=== PATIENT | male | born 1990 | race Caucasian/White ===

== ENCOUNTER 2018-05-29 13:38 | Emergency (ER) | payer MEDICAID, SELFPAY ==
[2018-05-29 13:42] VITALS: BP 121/71; PULSE 79; RESP 16; TEMP 36.7; O2SAT 98
--- NOTE | 2018-05-29 13:56 | W.ED.GENAD ---
Discharge Plan Disposition Patient Disposition: HOME Condition: Fair Discharge Details Chief Complaint: DentalOral Clinical Impression: Dental infection Primary Care Provider: Maurice Squires ED Provider: Laura Benson Home Meds and New Rx's Prescriptions: New penicillin V potassium 500 mg tablet 500 mg PO QID Qty: 28 RF: 0 acetaminophen [Tylenol Extra Strength] 500 mg tablet 500 mg PO Q6H MDD 1-2 tabs, max 4,000mg daily PRN (Reason: fever or pain) Qty: 20 RF: 0 ibuprofen 600 mg tablet 600 mg PO QID PRN (Reason: pain) Qty: 20 RF: 0 Discharge Instructions Instructions: Dental Abscess (ED) Additional Instructions: Encourage hydration. Please take ibuprofen and Tylenol as prescribed for discomfort if needed. Please take penicillin as prescribed. Even if symptoms improve please take the entire course. Please contact dentist tomorrow to schedule appointment, attached is a local list of dentist. If you develop fever/chills, increased pain, swelling or other new/worsening symptoms please seek care urgently once again. Referrals: Maurice Squires [Primary Care Provider] - Discharge Data Discharge Date/Time-TO BE ENTERED AT DEPARTURE: 05/29/18 14:11 Medical Decision Making Patient 28-year-old male presenting today with chief complaint of left upper dental pain. He reports that he fractured the #15 tooth partially 4 weeks ago, unknown mechanism. Reports that he is 4 teeth. States he has been attempting to contact a dentist since that time has not had any luck with this. Reports that he had not been having any discomfort associated with a fractured tooth until today. States that he is now having pain in the left upper dentition, indicates that the #15 tooth on exam, with pain radiating up towards the left ear. No acute findings in the left ear. He is having discomfort with palpation of the buccal side of the gumline near the #15 tooth. No pain with palpation of the lingual side. No palpable area of fluctuance. The gumline it does appear slightly erythematous. Given his history and progression of symptoms I am concerned he is developing infection. Patient will be treated with penicillin VK. Encourage hydration. Tylenol and/or ibuprofen as needed for discomfort. Patient is requesting a prescription for Tylenol and ibuprofen. We will give the list of local dentists and advised that he call tomorrow to schedule follow-up as soon as possible. We discussed new/worsening symptoms when to seek care urgently again. All his questions and concerns were addressed and he is in agreement with this plan HPI General Mode of arrival: ambulatory. Date/Time Provider Initiated Documentation: 05/29/18 13:49. Limitations to Documentation: no limitations. History of Present Illness 28 year old M presents to the emergency department with the chief complaint of left upper dental pain, described as moderate, with intensity rated at 8. Quality is described as sharp, and is localized to the mouth (buccal side #15 tooth). Patient reports radiation to (radiates up toward the left ear). Patient started experiencing this hour(s) (4) and it has been constant. No relieving factors improve symptom(s), Cold therapy worsens symptoms and Eating worsens symptoms . Patient notes no other symptoms.; denies cough, fever/chills, headaches, nausea/vomiting and rash. Patient did receive the following treatments prior to arrival, none Related Data Home Medications Medication Instructions Recorded Confirmed acetaminophen [Tylenol Extra 500 mg PO Q6H PRN #20 tab MDD 1-2 05/29/18 Strength] tabs, max 4,000mg daily ibuprofen 600 mg PO QID PRN #20 tab 05/29/18 penicillin V potassium 500 mg PO QID #28 tab 05/29/18 Previous Rx's Medication Instructions Recorded acetaminophen [Tylenol Extra 500 mg PO Q6H PRN #20 tab MDD 1-2 05/29/18 Strength] tabs, max 4,000mg daily ibuprofen 600 mg PO QID PRN #20 tab 05/29/18 penicillin V potassium 500 mg PO QID #28 tab 05/29/18 Allergies Allergy/AdvReac Type Severity Reaction Status Date / Time No Known Allergies Allergy Unverified 02/09/18 12:47 General Stated Complaint: DentalOral CRISTINA: 5 Review of Systems Constitutional Reports as per HPI, Denies chills, Denies fever(s) and Denies headache(s) Eyes Denies irritation and Denies itchy eyes ENT Reports as per HPI, Denies vertigo, Denies dizziness, Denies ear discharge, Reports otalgia (endorsing left ear pain, feels that pain is radiating from left upper tooth discomfort), Reports facial pain (has discomfort on the right side of his face where the dental pain is localized), Denies headache(s) and Denies neck pain Cardiovascular Denies chest pain Respiratory Denies chest congestion and Denies cough Gastrointestinal Denies diarrhea, Denies nausea and Denies vomiting Musculoskeletal Denies neck pain Integumentary/Breasts Denies rash Neurologic Denies vertigo, Denies dizziness and Denies headache(s) Allergic/Immunologic Denies itchy eyes [facility] Social History Smoking/Tobacco Use Status: Current every day Exam Const General: cooperative, healthy appearing, comfortable, no acute distress and well developed Nutritional Appearance: average body habitus and well nourished Orientation: alert and awake HENMT Head: normal to inspection and normocephalic Ears: hearing grossly normal bilaterally, external ears normal and TM's normal bilaterally General nose exam: external nose normal and nares normal Face and sinus: normal facial exam, sinuses nontender and face symmetric Mouth: oral mucosae normal, lip normal, tongue normal, oropharynx normal, moist mucous membranes and no trismus Teeth and gingiva: abnormal dentition (patient has poor dentition with multiple caries. He has pain with palpation over theleft upper buccal gum line with associated erythema. No area of fluctuance, no lingual sided discomfort) Throat: posterior oropharynx normal, tonsils normal and uvula midline Eyes General: appearance normal, both eyes and all related structures Neck Neck: normal visual inspection, full ROM, no lymphadenopathy and no meningeal signs Resp Effort & Inspection: normal respiratory effort, able to speak in complete sentences and no cough Auscultation: clear to auscultation bilaterally Cardio Rate: regular rate Rhythm: regular rhythm Heart Sounds: S1 normal and S2 normal Skin General skin exam: no rashes or lesions noted Neuro General: alert, awake and oriented x3 Cognition: normal cognition Speech: speech normal Gait: normal gait Psych Appearance: grossly normal and well kempt Mental Status: mental status grossly normal Course Vital Signs Temperature 36.7 C 05/29/18 13:42 Pulse 79 05/29/18 13:42 Respiratory Rate 16 05/29/18 13:42 Blood Pressure 121/71 05/29/18 13:42 Pulse Oximetry 98 05/29/18 13:42 Temperature 36.7 C 05/29/18 13:42 Temperature Source Temporal Artery Scan 05/29/18 13:42 Pulse 79 05/29/18 13:42 Respiratory Rate 16 05/29/18 13:42 Respiratory Effort 05/29/18 13:45 Blood Pressure 121/71 05/29/18 13:42 Blood Pressure Position Sitting 05/29/18 13:42 Pulse Oximetry 98 05/29/18 13:42 Oxygen Delivery Method Room Air 05/29/18 13:42 Oxygen Flow Rate 0 05/29/18 13:42 Pain Level 8 05/29/18 13:42
[2018-05-29] MEDS: Penicillin V POTASSIUM 500 MG TAB PO (14:10)
[2018-05-29] MEDS: Acetaminophen 500 MG TAB 1000 MG PO (14:10)
[2018-05-29] MEDS: Ibuprofen 600 MG TAB PO (14:10)
== END 2018-05-29 14:11 | disposition home or self-care (01) ==
PROVIDERS: Emergency Provider Physician Assistant; PCP Family Medicine
DX: K04.7 Periapical abscess without sinus (principal)
CPT/HCPCS: 99283

== ENCOUNTER 2019-01-11 17:08 | Emergency (ER) | payer MEDICAID, SELFPAY ==
[2019-01-11 17:11] VITALS: BP 110/70; PULSE 74; RESP 18; TEMP 36.7; O2SAT 96
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
[2019-01-11 18:31] VITALS: BP 110/70; PULSE 74; RESP 18; TEMP 36.7; O2SAT 96
== END 2019-01-11 18:31 | disposition home or self-care (01) ==
PROVIDERS: Emergency Provider Emergency Medicine; PCP Family Medicine
DX: S92.404A Nondisplaced unspecified fracture of right great toe, initial encounter for closed fracture (principal); W22.8XXA Striking against or struck by other objects, initial encounter
CPT/HCPCS: 28490; 73630

== ENCOUNTER 2019-04-18 19:56 | Emergency (ER) | payer MEDICAID, SELFPAY ==
[2019-04-18 19:59] VITALS: BP 119/65; PULSE 97; RESP 17; TEMP 36.6; O2SAT 98
--- NOTE | 2019-04-18 20:06 | W.ED.GENAD ---
Discharge Plan Disposition Patient Disposition: HOME Condition: Good Discharge Details Chief Complaint: Sorethroat Clinical Impression: Viral URI with cough Primary Care Provider: Maurice Squires ED Provider: Torey Martinez Discharge Instructions Instructions: Upper Respiratory Infection (ED) Additional Instructions: Strep culture is pending. Symptoms are most likely viral URI. It is important to stay hydrated. Alternate Motrin with Tylenol for fever and pain. Salt water gargles and Cepacol lozenges will help with a sore throat. Return to the emergency department if you develop sudden worsening of symptoms, increasing shortness of breath, chest pain, confusion, other concerns. Follow-up with primary care in 7 to 10 days if not getting better. Referrals: Maurice Squires [Primary Care Provider] - Medical Decision Making Patient with URI symptoms that are likely viral in nature. Rapid strep is done and is negative. Will send for culture. Lungs are clear to auscultation with no wheezing or focal findings. Cough is dry in nature and he is a smoker. We will try DuoNeb treatment. If this helps we will plan discharge with albuterol inhaler. Otherwise symptomatic care with Motrin or Tylenol as needed, rest, fluids. DuoNeb treatment did not help. Still has a dry cough and does not really feel any better in terms of breathing. He otherwise looks well. And vital signs are normal. Pulse oximetry normal. Lungs clear. Likely viral URI. Discussed the expectations of a viral URI. Will return to the emergency department if he has altered mental status, chest pain, increasing shortness of breath, sudden worsening in symptoms. Otherwise follow-up with primary care in 7 to 10 days if not better. HPI General Mode of arrival: ambulatory. Date/Time Provider Initiated Documentation: 04/18/19 20:06. Limitations to Documentation: no limitations. Information obtained by: patient and RN notes reviewed. HPI Narrative: Patient presents to the ED with complaint of sore throat, cough, nasal congestion for the last 2 days. He has had subjective fevers but no documented temperature with thermometer. He has some body aches, mild headache, bilateral ear pain. Throat bothers him the most. Cough is dry in nature. Feels a little short of breath. No chest pain or back pain. He is a smoker. He is able to eat and drink although it causes discomfort. Drinking is definitely easier. Related Data Allergies Allergy/AdvReac Type Severity Reaction Status Date / Time No Known Allergies Allergy Unverified 02/09/18 12:47 General Stated Complaint: Sorethroat CRISTINA: 4 Review of Systems Review of Systems As documented in HPI otherwise negative as below. Const: subjective fever; no chills, weakness Resp: positive cough, mild SOB; no pleuritic pain CV: no CP, diaphoresis, edema, syncope GI: no abdominal pain, nausea, vomiting, diarrhea Neuro: mild headache; no numbness, focal weakness, confusion [facility] Medical History Erectile dysfunction (Acute) Tobacco abuse disorder (Acute) Surgical History History of placement of ear tubes (Acute) Social History Smoking/Tobacco Use Status: Current every day Alcohol Intake: never Drug use: Daily Substance use type: does not use Do you feel safe in your relationship?: Yes Exam Narrative Exam Narrative: Vitals: Afebrile here. Vitals normal with normal pulse ox. Const: WDWN male in NAD. HEENT: NC/AT. Normal facial exam. TMs normal bilaterally. Posterior OP erythematous; no exudate or edema. Eyes: Normal conjunctiva and sclera. Neck: Supple. Trachea midline. Lungs: Normal respiratory effort. Lungs are clear. No wheeze, rhonchi, rales. Cor: RRR without murmur/gallop. Neuro: A+O x 3. CN grossly in tact. Good strength and no focal deficit. Ext: No C/C/E. Skin: Warm and dry without rash. Course Vital Signs Temperature 97.9 F 04/18/19 19:59 Pulse 97 H 04/18/19 19:59 Respiratory Rate 17 04/18/19 19:59 Blood Pressure 119/65 04/18/19 19:59 Pulse Oximetry 98 04/18/19 19:59 Temperature 97.9 F 04/18/19 19:59 Temperature Source Skin 04/18/19 19:59 Pulse 97 H 04/18/19 19:59 Respiratory Rate 17 04/18/19 19:59 Respiratory Effort Non-Labored 08/27/19 20:01 Blood Pressure 119/65 08/27/19 19:59 Pulse Oximetry 98 04/18/19 19:59 Oxygen Delivery Method Room Air 04/18/19 19:59 Oxygen Flow Rate 0 04/18/19 19:59
[2019-04-18] MEDS: Albuterol/Ipratropium 3 ML UPD VIAL UPD (20:21)
--- NOTE | 2019-04-20 08:14 | W.ED.FU ---
pt's strep culture positive, attempted to call back but his voicemail restricts any calls from the hospital.
== END 2019-04-18 20:45 | disposition home or self-care (01) ==
PROVIDERS: Emergency Provider Emergency Medicine; PCP Family Medicine
DX: J02.0 Streptococcal pharyngitis (principal); R05 Cough; H92.03 Otalgia, bilateral; F17.210 Nicotine dependence, cigarettes, uncomplicated
CPT/HCPCS: 87880; 94640; 99283; 87081; J7620

== ENCOUNTER 2019-05-10 11:36 | Emergency (ER) | payer MEDICAID, SELFPAY ==
[2019-05-10 11:46] VITALS: BP 115/57; PULSE 100; RESP 20; TEMP 36.8; O2SAT 97
--- NOTE | 2019-05-10 12:32 | ED.GENADUL_ITS ---
Discharge Plan Disposition Patient Disposition: HOME Condition: Good Discharge Details Chief Complaint: Sorethroat Clinical Impression: Strep throat, Bronchitis Primary Care Provider: Maurice Squires ED Provider: Jose Mackay Home Meds and New Rx's Prescriptions: New amoxicillin-pot clavulanate [Augmentin] 875-125 mg tablet 1 tab PO BID 10 Days Qty: 20 RF: 0 Discharge Instructions Instructions: Strep Throat (ED), Acute Bronchitis (ED) Additional Instructions: You have strep throat. I am also concerned that you have mild bronchitis and potential mild pneumonia. Please take antibiotics as directed. If you notice any worsening of your symptoms, or any new symptoms such as vomiting, diarrhea, fever, chills, shortness of breath, chest pain, numbness, weakness, or fainting , please return immediately to the emergency department for reevaluation. Please follow up with your primary care provider as soon as possible for reassessment and reevaluation. As always, it was a pleasure participating in your medical care today. Referrals: Maurice Squires [Primary Care Provider] - Medical Decision Making This is a 29-year-old male who presents with 2 to 3 days of mild sore throat, fevers, chills, mild cough that is nonproductive. Physical exam demonstrates notable tonsillar exudate mild enlargement. No significant crackles or rhonchi in the lungs. Strep test is positive. With the patient's fever, chills, cough, and concern for associated mild early pneumonia in conjunction with strep throat. Will broaden antibiotic coverage to Augmentin, to cover both mild community-acquired pneumonia per [facility] resistance patterns, as well as a strep throat. We will give Toradol and Decadron to help with his symptoms. I have extensively reviewed the treatment plan and discharge instructions with the patient and their family. I have addressed all patient concerns at this time. The patient and family was made aware of what symptoms to monitor for that would warrant a return to the emergency department. Discussed the plan with the patient and family, they demonstrate verbal understanding and agreement with our assessment and plan at this time. HPI General Date/Time Provider Initiated Documentation: 05/10/19 12:13 . HPI Narrative: This is a 29-year-old male with no significant past medical history except for occasional tobacco abuse who presents today for evaluation of sore throat. Symptoms have been present for the last 2 to 3 days. He has had no associated mild fever at home, he is afebrile here. Does admit to mild cough that is nonproductive. He denies any hemoptysis. He denies any headache or neck pain or neck stiffness. He denies any difficulty swallowing. He denies any severe uncharacteristic fatigue. He denies any other sick contacts with similar symptoms. Symptoms are made slightly better with NSAIDs. He denies any other complaints at this time. No other modifying factors. Related Data Home Medications Medication Instructions Recorded Confirmed amoxicillin-pot clavulanate 1 tab PO BID 10 Days #20 tab 05/10/19 [Augmentin] Previous Rx's Medication Instructions Recorded amoxicillin-pot clavulanate 1 tab PO BID 10 Days #20 tab 05/10/19 [Augmentin] Allergies Allergy/AdvReac Type Severity Reaction Status Date / Time No Known Allergies Allergy Unverified 05/10/19 11:47 General Stated Complaint: Sorethroat CRISTINA: 4 Review of Systems Review of Systems ROS Unobtainable: All systems reviewed & are unremarkable except as noted in HPI and below PFSH Social History Smoking/Tobacco Use Status: Current every day Alcohol Intake: never Drug use: Daily Substance use type: does not use Do you feel safe at home: Yes Do you feel safe in your relationship?: Yes Exam Narrative Exam Narrative: 1.Const: Well-nourished, Well-developed, appearing stated age 2.Eyes: PERRL, no conjunctival injection, and symmetrical lids. 3.ENT: Atraumatic external nose and ears. Moist MM. Neck: Symmetric, trachea midline, No thyromegaly. Mild erythema in the posterior oropharynx, mild to moderate tonsillar enlargement, moderate tonsillar exudate. No evidence of airway compromise or peritonsillar abscess. Patient demonstrates good movement of cervical neck. There is no nuchal rigidity, no nuchal tenderness. Patient is able to flex the neck without any difficulty or significant pain. Negative Kernig's and Brudzinski sign. 4.CVS: +S1/S2, No murmurs or gallops. Peripheral pulses 2+ and equal in all extremities. Brisk capillary refill in all extremities. 5.RESP: Unlabored respiratory effort. Clear to auscultation bilaterally. No wheezes rales or rhonchi 6.GI: Soft, Nontender/Nondistended, No hepatosplenomegaly. No guarding or rebound. 7.MSK: Normocephalic/Atraumatic, Extremities w/o deformity or ttp No cyanosis or clubbing, Normal movement of all extremities 8.Skin: Warm, Dry. No rashes or lesions. 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 Sensation grossly intact, no focal neurologic deficits. 10.Psych: (AAO) x3. Appropriate mood and affect Course Vital Signs Vital signs: Vital Signs Temperature 36.8 C 05/10/19 11:46 Pulse 100 H 05/10/19 11:46 Respiratory Rate 20 05/10/19 11:46 Blood Pressure 115/57 L 05/10/19 11:46 Pulse Oximetry 97 05/10/19 11:46 Temperature 36.8 C 05/10/19 11:46 Temperature Source Temporal Artery Scan 05/10/19 11:46 Pulse 100 H 05/10/19 11:46 Respiratory Rate 20 05/10/19 11:46 Respiratory Effort Non-Labored 05/10/19 11:48 Blood Pressure 115/57 L 05/10/19 11:46 Blood Pressure Position Sitting 05/10/19 11:46 Pulse Oximetry 97 05/10/19 11:46 Oxygen Delivery Method Room Air 05/10/19 11:46 Oxygen Flow Rate 0 05/10/19 11:46 Pain Level 8 05/10/19 11:46 Lab/Test Results Lab/Test Results: POC Strep Test-[facility](Rapid) Start: 05/10/19 11:55 Freq: Status: Active Protocol: Document 05/10/19 11:55 (Rec: 05/10/19 11:55 [id number]) Strep test-[facility](Rapid)-POC POC-Strep test-[facility] (Rapid) Positive POC-Strep test-[facility] (Rapid) Positive
[2019-05-10] MEDS: Dexamethasone 10 MG/ML VIAL IM (12:40)
[2019-05-10] MEDS: Ketorolac 30 MG/ML VIAL IM (12:40)
== END 2019-05-10 13:14 | disposition home or self-care (01) ==
PROVIDERS: Emergency Provider Student in an Organized Health Care Education/Training Program; PCP Family Medicine
DX: J02.0 Streptococcal pharyngitis (principal); J20.9 Acute bronchitis, unspecified; F17.210 Nicotine dependence, cigarettes, uncomplicated
CPT/HCPCS: 87880; 96372; 99284; J1100; J1885

== ENCOUNTER 2019-08-02 15:50 | Emergency (ER) | payer MEDICAID, SELFPAY ==
[2019-08-02 16:01] VITALS: BP 122/72; PULSE 97; RESP 14; TEMP 36.8; O2SAT 97
--- NOTE | 2019-08-02 16:28 | ED.GENADUL_ITS ---
Discharge Plan Disposition Patient Disposition: HOME Condition: Good Discharge Details Chief Complaint: Nausea/Vomit/Diar Clinical Impression: Gastroenteritis Primary Care Provider: Joan Webster ED Provider: Marii Tarango Home Meds and New Rx's Prescriptions: New ondansetron HCl [Zofran] 4 mg tablet 4 mg PO Q8H PRN (Reason: nausea and vomiting) Qty: 7 RF: 0 Discharge Instructions Instructions: Gastroenteritis (ED) Additional Instructions: Drink plenty of fluids. Observe for any signs of dehydration. Nausea medication as prescribed if needed. Use Tylenol for fever control if needed [id number]. You declined labs or IV fluids at this time but understand to return for any worsening or alarming symptoms if needed. Recheck with PCP if not improved in 1 to 2 days Return for abdominal pain, signs of dehydration, worsening symptoms or alarming symptoms sooner if needed Stand Alone Forms: Work Release Medical Decision Making There is a 29-year-old patient who presents for nausea vomiting and diarrhea which began today. Patient reports last episode of vomiting was approximately 3 hours ago and he has been tolerating fluids since that time. Patient was unable to go to work today due to several and frequent episodes of vomiting and diarrhea. Patient denies abdominal pain. He did report to cramping prior to moving bowels however pain has entirely resolved in his abdomen. Patient denies headache or dizziness. Patient does report mild feverish feeling today with no associated chills. Patient does report he is urinating normal amounts. Patient has been drinking water for the last 3 hours without vomiting. Patient reports watery diarrhea with no associated blood. Patient denies upper respiratory symptoms however does have a baseline cough which he attributes to smoking. Patient denies drug or alcohol use. At this time patient declines labs or IV. Would prefer oral hydration. Patient reports he primarily came to the emergency room for a note to excuse him from work today. Patient will consent to nausea medication to thea any persistent vomiting. Will give patient a tablet of nausea medication at this time and 1 for home. Will provide a prescription for nausea medication although patient reports he is very unlikely to fill this medication unless necessary. Counseled regarding hyd rating by mouth as well as signs and symptoms of dehydration. Patient is nontoxic-appearing at this time. Patient's abdominal exam at this time is extremely benign. He has no associated pain on palpation. He has no peritoneal signs or symptoms. No rebound or guarding. Patient's preference at this time is to be provided a work note and discharged home with conservative treatments and return for any worsening or concerns if needed. The patient was stable and requested discharge. Prior to discharge, my usual and customary return precautions were reviewed with the patient - this included follow-up instructions and reasons to return to the Emergency Department if conditions worsens, does not improve as expected, or other new concerns arise. HPI General Date/Time Provider Initiated Documentation: 08/02/19 16:13 . HPI Narrative: Is a 29-year-old patient who presents for nausea vomiting and diarrhea which began this morning. Patient reports several episodes of nausea vomiting and diarrhea. Patient denies abdominal pain. Patient denies headache or dizziness. Patient does report a mild fever at home. Patient reports no blood in the vomitus or bowel movements. Patient does report mild discomfort when having bowel movements due to soreness of the rectum but again no sharp pain. Patient reports he missed work today due to vomiting and diarrhea and is requesting a work note at this time. Patient reports last episode of vomiting was approximately 3 hours ago. Patient has been tolerating fluids since that time. Patient has been urinating normally. Patient reports a mild baseline cough without change which she attributes to smoking. Denies any other upper respiratory symptoms or worsening cough. Denies back pain. No other concerns or complaints at this time. Related Data Home Medications Medication Instructions Recorded Confirmed ondansetron HCl [Zofran] 4 mg PO Q8H PRN #7 tab 08/02/19 Previous Rx's Medication Instructions Recorded ondansetron HCl [Zofran] 4 mg PO Q8H PRN #7 tab 08/02/19 Allergies Allergy/AdvReac Type Severity Reaction Status Date / Time No Known Allergies Allergy Unverified 08/02/19 16:04 General Stated Complaint: Nausea/Vomit/Diar CRISTINA: 3 Review of Systems All systems reviewed & are unremarkable except as noted in HPI and below Constitutional Constitutional: Denies chills, Denies fatigue, Reports fever(s), Denies headache(s) and Denies malaise ENT Ears, Nose, Mouth, and Throat: Denies headache(s) and Denies sore throat Respiratory Respiratory: Reports cough, Denies excessive phlegm production, Denies pain on inspiration, Denies pain with cough and Denies wheezing Gastrointestinal Gastrointestinal: Denies abdominal pain, Denies constipation, Reports cramping, Reports diarrhea, Reports nausea and Reports vomiting Genitourinary Genitourinary: Denies dysuria Neurologic Neurologic: Denies headache(s) Endocrine Endocrine: Denies fatigue Allergic/Immunologic Allergic/Immunologic: Denies wheezing [facility] Medical History Eczema (Acute) Erectile dysfunction (Acute) Tobacco abuse disorder (Acute) Surgical History History of placement of ear tubes (Acute) Social History Smoking/Tobacco Use Status: Current every day Tobacco Type: cigarettes Quit status: not considering quitting Second Hand Exposure: Yes (both parents smoked) Alcohol Intake: never Drug use: Daily Substance use type: marijuana Adopted: No Household members: spouse, family and children Housing: house Number of Children: 2 Education Level: high school Do you need help understanding health information?: Rarely 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 Well hydrated. Alert and alert. HENMT: Head nomocephalic, normal to inspection. Atraumatic. Hearing grossly normal. External ear canal no erythema or swelling. TM normal bilaterally. Nose normal to inspection. No rhinnorhea. Normal facial exam. Oral mucosa mildly dry mucous membranes. Dentition normal. Normal posterior oropharynx. Uvula midline. EYES: General normal appearance. Alignment normal. Eyelids normal. Conjunctiva normal. Sclera normal. PERRL. NECK: Normal visual inspection. FROM. No lymphadenopathy. Trachea midline. No Midline tenderness. CHEST: Normal insepection of the chest. RESP: Normal respiratory effort. Speaking full sentences. No cough. No wheezing. No retractions. Clear to auscaltation. Breath sound equal and present bilaterally. CARDIO: No JVD. Normal PMI. Regular Rate. Regular Rhythm. Normal peripheral pulses. GI: Normal inspection of abdomen. No distension. Soft. Nontender. Bowel sounds present in all 4 quadrants. No rebound. No gaurding. MUSCULOSKELETAL: Normal Gait. FROM of all extremities. Distal neurovascularly i ntact. Sensation intact distally. SKIN: Normal. Dry. No rashes. NEURO: Alert and awake. Speech clear. PSYCH: Normal affect. Cooperative. Course Vital Signs Vital signs: Vital Signs Temperature 36.8 C 08/02/19 16:01 Pulse 97 H 08/02/19 16:01 Respiratory Rate 14 08/02/19 16:01 Blood Pressure 122/72 08/02/19 16:01 Pulse Oximetry 97 08/02/19 16:01 Temperature 36.8 C 08/02/19 16:01 Temperature Source Temporal Artery Scan 08/02/19 16:01 Pulse 97 H 08/02/19 16:01 Respiratory Rate 14 08/02/19 16:01 Respiratory Effort Non-Labored 08/02/19 16:03 Blood Pressure 122/72 08/02/19 16:01 Blood Pressure Position Sitting 08/02/19 16:01 Pulse Oximetry 97 08/02/19 16:01 Oxygen Delivery Method Room Air 08/02/19 16:01 Oxygen Flow Rate 0 08/02/19 16:01 Pain Level 0 08/02/19 16:01
== END 2019-08-02 16:40 | disposition home or self-care (01) ==
PROVIDERS: Emergency Provider Physician Assistant; PCP Nurse Practitioner
DX: K52.9 Noninfective gastroenteritis and colitis, unspecified (principal); R50.9 Fever, unspecified
CPT/HCPCS: 99283

== ENCOUNTER 2019-09-20 09:01 | Outpatient (CLI) | payer MEDICAID, SELFPAY ==
[2019-09-20 09:25] LABS: HCT 40.3 % (40.0-50.0); HGB 13.6 g/dL (13.5-17.5); Mean Corp. HGB Concentration 33.7 g/dL (32.0-36.0); Mean Corpuscular Hemoglobin 31.3 pg (27.0-33.0); Mean Corpuscular Volume 92.9 fL (80-95); Mean Platelet Volume 9.6 fL (8.0-11.0); Platelet Count 210 x1000/uL (130-400); RBC 4.34 m/cumm (4.50-6.00); RBC Distribution Width 12.7 % (11.8-14.1); White Blood Cell Count 5.83 k/cumm (4.4-10.8)
[2019-09-20 10:23] LABS: ALT 22 U/L (16-63); AST 20 U/L (15-37); Albumin 3.7 g/dL (3.4-5.0); Alkaline Phosphatase 81 U/L (46-116); BUN 15 mg/dL (7-18); Bilirubin, Total 0.2 mg/dL (0.2-1.0); Calcium 8.5 mg/dL (8.5-10.1); Chloride 106 mmol/L (98-107); Glucose 76 mg/dL (74-106); Sodium 144 mmol/L (136-145); TSH (W/Ref FT4) 1.14 uIU/mL (0.36-3.74); Total Protein 6.9 g/dL (6.4-8.2)
[2019-09-21 12:11] LABS: PSA, Screening 0.8 ng/mL (0.0-2.5)
[2019-09-23 08:34] LABS: Testosterone, Total 299 ng/dL (240-950)
== END 2019-09-20 09:21 ==
PROVIDERS: PCP Nurse Practitioner; Visit Provider Nurse Practitioner Gerontology
DX: R53.83 Other fatigue (principal); N52.9 Male erectile dysfunction, unspecified; R33.9 Retention of urine, unspecified; Z12.5 Encounter for screening for malignant neoplasm of prostate
CPT/HCPCS: 36415; 80053; 84153; 84403; 85027; 84443

== ENCOUNTER 2019-10-31 15:36 | Outpatient (CLI) | payer MEDICAID, SELFPAY ==
[2019-10-31 17:05] LABS: ESR 18 mm/hr (0-15)
[2019-10-31 18:09] LABS: C-Reactive Protein 0.39 mg/dL (0.0-0.3)
[2019-10-31 21:39] LABS: Rheumatoid Factor <8.6 IU/mL (<12.0)
[2019-11-01 11:41] LABS: Lyme Ab w Rflx to Lyme Confirm Negative (Negative)
[2019-11-01 16:49] LABS: ANA Interpretation Positive (Negative); ANA Titer Pattern 1:80 Speckled
== END 2019-10-31 15:56 ==
PROVIDERS: PCP Nurse Practitioner; Visit Provider Nurse Practitioner
DX: M25.50 Pain in unspecified joint (principal); M25.561 Pain in right knee; M25.562 Pain in left knee; M79.643 Pain in unspecified hand; R53.83 Other fatigue
CPT/HCPCS: 36415; 85652; 86038; 86140; 86431; 86618

== ENCOUNTER 2020-06-18 07:50 | Outpatient (CLI) | payer MEDICAID, SELFPAY ==
[2020-06-21 04:46] LABS: Patient Race White; SARS-CoV-2 RNA Undetected (Undetected); SARS-CoV-2 Specimen Source Nasal
== END 2020-06-18 08:10 ==
PROVIDERS: PCP Nurse Practitioner; Visit Provider Family Medicine
DX: Z11.59 Encounter for screening for other viral diseases (principal)
CPT/HCPCS: U0003

== ENCOUNTER 2022-03-11 01:25 | Outpatient (CLI) | payer MEDICAID, SELFPAY ==
[2022-03-11 09:08] LABS: HGB 15.2 g/dL (13.5-17.5); MCH 31.4 pg (27.0-33.0); MCHC 34.5 % (32.0-36.0); MCV 91 fL (80-95); MPV 9.8 fL (8.0-11.0); Platelet Count 190 10^3/uL (130-400); RBC 4.84 10^6/uL (4.36-5.78); RDW 12.7 % (11.8-14.1); RDW-SD 42.2 fL; WBC 15.34 10^3/uL (4.4-10.8)
[2022-03-11 10:14] LABS: ALT 20 U/L (16-63); AST 13 U/L (15-37); Albumin 4.1 g/dL (3.4-5.0); Alkaline Phosphatase 105 U/L (46-116); BUN 12 mg/dL (7-18); Bilirubin, Total 0.4 mg/dL (0.2-1.0); Calcium 8.9 mg/dL (8.5-10.1); Calculated LDL 112 mg/dL (<100); Chloride 105 mmol/L (98-107); Cholesterol 190 mg/dL (<200); Glucose 98 mg/dL (74-106); HDL Cholesterol 31 mg/dL (40-60); Potassium 3.9 mmol/L (3.5-5.1); Sodium 140 mmol/L (136-145); Total Protein 7.8 g/dL (6.4-8.2); Triglyceride 239 mg/dL (<150)
[2022-03-12 09:43] LABS: Hepatitis C Ab w Rflx HCV PCR Negative (Negative)
[2022-03-12 10:00] LABS: HIV-1/2 Ag & Ab Screen Negative (Negative)
== END 2022-03-11 01:26 | disposition home or self-care (01) ==
LOC: LBO 01:25
PROVIDERS: PCP Nurse Practitioner; Visit Provider Nurse Practitioner
DX: D72.829 Elevated white blood cell count, unspecified (principal); R20.0 Anesthesia of skin; Z72.0 Tobacco use; Z13.220 Encounter for screening for lipoid disorders; Z11.59 Encounter for screening for other viral diseases; Z11.4 Encounter for screening for human immunodeficiency virus [HIV]
CPT/HCPCS: 36415; 80053; 80061; 85027; 86803; 87389

== ENCOUNTER 2022-03-20 01:26 | Outpatient (CLI) | payer MEDICAID, SELFPAY | END 2022-03-20 01:27 | disposition home or self-care (01) | LOC: LBO 01:27 | PROVIDERS: PCP Nurse Practitioner; Visit Provider Nurse Practitioner ==

== ENCOUNTER → 2022-04-03 00:28 | Outpatient (CLI) | payer MEDICAID, SELFPAY ==
--- NOTE | 2022-04-03 07:00 | DI.MRI_ITS ---
Exam(s) MR LUMBAR SPINE WO EXAM: MR LUMBAR SPINE WO CLINICAL HISTORY: chronic back pain,RADICULOPATHY OF LEG,LEG NUMBNESS,M54.9,M54..10,R20.0. TECHNIQUE: Multiplanar multisequence MRI of the Lumbar spine was performed. COMPARISON: CR [facility] COCCYX from 01/29/2018 FINDINGS: Bones: The last intervertebral disc space is designated the L5/S1 level for the numbering purpose of this examination. The vertebral body heights are well maintained. Alignment is satisfactory. The ma rrow signal characteristics are unremarkable. Cord: The conus tip ends at the T12 level. It is of normal size and signal intensity. T12-L1: No disc herniations or bulges are present. No central spinal canal or neural foraminal stenos is. L1-2: No disc herniations or bulges are present. No central spinal canal or neural foraminal stenosis . L2-3: No disc herniations or bulges are present. No central spinal canal or neural foraminal stenosis . L3-4: No disc herniations or bulges are present. No central spinal canal or neural foraminal stenosis . L4-5: No disc herniations or bulges are present. No central spinal canal or neural foraminal stenosis . L5-S1: No disc herniations or bulges are present. No central spinal canal or neural foraminal stenosi s. The visualized SI joints and sacrum are well maintained. Soft tissues: The paraspinal soft tissues are unremarkable. IMPRESSION: No evidence of disc herniation or disc bulging at any level. No evidence of significant spinal steno sis or neuroforaminal narrowing. DATA REPOSITORY:
== END ==
PROVIDERS: PCP Nurse Practitioner; Visit Provider Nurse Practitioner
DX: G89.29 Other chronic pain (principal); M54.9 Dorsalgia, unspecified; R20.0 Anesthesia of skin
CPT/HCPCS: 72148

== ENCOUNTER 2022-04-16 12:35 | Emergency (ER) | payer MEDICAID, SELFPAY ==
[2022-04-16 12:40] VITALS: BP 109/74; PULSE 104; RESP 16; TEMP 37.2; O2SAT 98
--- NOTE | 2022-04-16 15:52 | W.ED.GENAD ---
Discharge Plan Disposition Patient Disposition: HOME Condition: Stable Discharge Details Clinical Impression: Laceration of wrist Primary Care Provider: Joan Webster ED Provider: Layla Braun Home Meds and New Rx's Prescriptions: Continued triamcinolone acetonide 0.1 % cream 1 applic TP BID PRN (Reason: Eczema left forearm and dorsal surface feet) Qty: 80 3RF lactulose 20 gram/30 mL solution 20 gm PO BID Qty: 2000 1RF senna 8.6 mg capsule See Rx Instructions PO BID PRN (Reason: constipation) Qty: 100 5RF Rx Instructions: 1-2 caps PO twice a day PRN gabapentin 300 mg capsule 300 mg PO TID Qty: 90 3RF ibuprofen 800 mg tablet 800 mg PO TID PRN (Reason: pain) Qty: 180 3RF Discharge Instructions Additional Instructions: You have a neither valid question suture removal in 10 days Ibuprofen and Tylenol as needed for pain Return with spreading redness, fever, worsening pain keep wound dry motrin.tylenol as needed for pain Medical Decision Making Patient tolerated suture placement without incident Suture removal in 10 days recommended Tetanus reportedly up-to-date Return precautions discussed and patient expressed understanding Medical Records Medical records reviewed: Yes I reviewed the patient's medical records. HPI General Date/Time Provider Initiated Documentation: 04/16/22 15:37. HPI Narrative: This 32-year-old male presents with laceration to right forearm. The handle of a tractor to open it and the glass broke, lacerating his right forearm. Tetanus up-to-date. The event occurred approximately 3 hours ago. Denies any additional injuries. He does not believe there is any foreign body remaining. Related Data Home Medications Medication Instructions Recorded Confirmed triamcinolone acetonide 0.1 % 1 applic topical BID PRN Eczema 09/26/19 12/04/19 topical cream left forearm and dorsal surface feet #80 grams lactulose 20 gram/30 mL oral 20 gm (30 mL) PO BID #2,000 mL 11/06/19 12/04/19 solution sennosides 8.6 mg capsule (senna) See Rx Instructions PO BID PRN 12/04/19 12/04/19 constipation #100 caps ibuprofen 800 mg tablet 800 mg PO TID PRN pain #180 tabs 10/30/21 gabapentin 300 mg capsule 300 mg PO TID #90 caps 03/11/22 03/11/22 Previous Rx's Medication Instructions Recorded triamcinolone acetonide 0.1 % 1 applic topical BID PRN Eczema 09/26/19 topical cream left forearm and dorsal surface feet #80 grams lactulose 20 gram/30 mL oral 20 gm (30 mL) PO BID #2,000 mL 11/06/19 solution sennosides 8.6 mg capsule (senna) See Rx Instructions PO BID PRN 12/04/19 constipation #100 caps ibuprofen 800 mg tablet 800 mg PO TID PRN pain #180 tabs 10/30/21 gabapentin 300 mg capsule 300 mg PO TID #90 caps 03/11/22 Allergies Allergy/AdvReac Type Severity Reaction Status Date / Time No Known Allergies Allergy Verified 09/11/21 09:06 General Stated Complaint: Laceration CRISTINA: 4 Review of Systems Narrative: Review of systems obtained x3 and negative aside from medication HPI PFSH All Active Problems (Updated 04/16/22 @ 15:56 by JAYDEN Chamberlain) Laceration of wrist (Acute) Right knee pain (Acute) Left arm numbness (Acute) Fatigue (Acute) Hand pain (Acute) Bilateral knee pain (Acute) Joint pain (Acute) Constipation (Acute) Routine medical exam (Acute) Back pain (Acute) Eczema (Acute) Encounter to establish care (Acute) Tobacco abuse disorder (Acute) Erectile dysfunction (Acute) Surgical History History of placement of ear tubes Family History (Updated 09/11/21 @ 09:22 by Arabella Ovalles RN) Maternal Grandfather Cancer Brain cancer Social History (Updated 09/11/21 @ 13:21 by Arabella Ovalles RN) Smoking/Tobacco Use Status: Current every day Tobacco Type: cigarettes Smoking packs per day: 0.5 Smoking cigarettes per day: 10.0 Years smoked: 16 Smoking pack-years: 8.00 Tobacco: How many years used: 18 Quit status: not considering quitting Second Hand Exposure: Yes (both parents smoked) Smoking risk assessment performed?: Yes Alcohol Intake: never Drug use: Daily Substance use type: marijuana Adopted: No Caregiver/Support person: No Foster care: No Household members: spouse, family and children Housing: house Number of Children: 2 number of grandchildren: 0 Communication Needs: None Education Level: high school Do you need help understanding health information?: Rarely current occupation: Unemployed Pets and animals: Yes Pets and animals: cat(s) Sexually active: Yes Do you think of yourself as: straight/heterosexual Current gender identity: male What is your relationship status?: How often do you talk on the phone with friends or family?: three or more times per week How often do you get together with friends or relatives?: once per week Do you belong to any clubs or organized social groups?: no Panel score (0-1 are the most socially isolated patients): 2 What type of physical activity do you participate in: walking Duration: 45-60 minutes/day Frequency: 3-4 times per week Special jayne needs: No Seatbelt use: sometimes Helmet use: Yes 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 1 inch laceration neurovascularly intact, strength and sensation intact distally Course Vital Signs Vital signs: Vital Signs Temperature 37.2 C 04/16/22 12:40 Pulse 104 H 04/16/22 12:40 Respiratory Rate 16 04/16/22 12:40 Blood Pressure 109/74 04/16/22 12:40 Pulse Oximetry 98 04/16/22 12:40 Temperature 37.2 C 04/16/22 12:40 Temperature Source Skin 04/16/22 12:40 Pulse 104 H 04/16/22 12:40 Respiratory Rate 16 04/16/22 12:40 Blood Pressure 109/74 04/16/22 12:40 Blood Pressure Position Sitting 04/16/22 12:40 Pulse Oximetry 98 04/16/22 12:40 Oxygen Delivery Method Room Air 04/16/22 12:40 Oxygen Flow Rate 0 04/16/22 12:40 Pain Level 4 04/16/22 12:40 Procedures Laceration Laceration 1: Site: upper extremity Side (If applicable): right Size (cm): 2.5 Description: linear Depth: simple, single layer Local Anesthetic: Lidocaine 1% Amount of anesthesia used (mL): 3 Skin layer closed with: nylon Size (cm): 5-0 Number of sutures: 2 Technique: other (vertical mattress )
== END 2022-04-16 16:05 | disposition home or self-care (01) ==
PROVIDERS: Emergency Provider Physician Assistant; PCP Nurse Practitioner
DX: S61.511A Laceration without foreign body of right wrist, initial encounter (principal); F17.210 Nicotine dependence, cigarettes, uncomplicated; W25.XXXA Contact with sharp glass, initial encounter
CPT/HCPCS: 12001; 99283

== ENCOUNTER 2023-03-15 10:34 | Emergency (ER) | payer MEDICAID, SELFPAY ==
[2023-03-15 10:36] VITALS: BP 123/81; PULSE 87; RESP 20; TEMP 36.6; O2SAT 99
--- NOTE | 2023-03-15 13:16 | W.ED.GENAD ---
Discharge Plan Disposition Patient Disposition: Home Discharge Details Clinical Impression: Hemorrhoid Primary Care Provider: Joan Webster ED Provider: Boaz Little Home Meds and New Rx's Prescriptions: New hydrocortisone acetate [Anusol-HC] 25 mg suppository 25 mg [place] DAILY Qty: 7 0RF No Action triamcinolone acetonide 0.1 % cream 1 applic TP BID PRN (Reason: Eczema left forearm and dorsal surface feet) Qty: 80 3RF gabapentin 600 mg tablet 600 mg PO BID Qty: 180 1RF ibuprofen 800 mg tablet 800 mg PO TID PRN (Reason: pain) Qty: 180 3RF Discharge Instructions Instructions: Hemorrhoids (ED) Additional Instructions: Please follow-up closely with your primary care physician. Please return to the emergency department for any worsening symptoms Stand Alone Forms: Work Release Medical Decision Making 33-year-old male presents with red blood on toilet paper when wiping today did have some loose stool, hemodynamically stable afebrile nontoxic. No further rectal bleeding since event this morning. No family history of GI malignancy, no weight loss no fevers no chills no nausea no vomiting no other systemic symptoms. Patient is already on a stool softener. Evidence of nonthrombosed external hemorrhoid small in nature nonbleeding. Home care instructions and return precautions given. Patient will continue with stool softener, will increase his fiber intake and water intake, will also prescribe Anusol. HPI General Date/Time Provider Initiated Documentation: 03/15/23 13:16. HPI Narrative: 33-year-old male presents after noticing blood streaking on the toilet paper when wiping today. Did have some loose stool. Denies pain weight loss fevers chills systemic signs of illness or family history of colon cancer. Related Data Home Medications Medication Instructions Recorded Confirmed triamcinolone acetonide 0.1 % 1 applic topical BID PRN Eczema 09/26/19 03/15/23 topical cream left forearm and dorsal surface feet #80 grams gabapentin 600 mg tablet 600 mg PO BID #180 tabs 10/12/22 03/15/23 ibuprofen 800 mg tablet 800 mg PO TID PRN pain #180 tabs 11/09/22 03/15/23 hydrocortisone acetate 25 mg 25 mg [place] DAILY #7 ea 03/15/23 rectal suppository (Anusol-HC) Previous Rx's Medication Instructions Recorded triamcinolone acetonide 0.1 % 1 applic topical BID PRN Eczema 09/26/19 topical cream left forearm and dorsal surface feet #80 grams gabapentin 600 mg tablet 600 mg PO BID #180 tabs 10/12/22 ibuprofen 800 mg tablet 800 mg PO TID PRN pain #180 tabs 11/09/22 hydrocortisone acetate 25 mg 25 mg [place] DAILY #7 ea 03/15/23 rectal suppository (Anusol-HC) Allergies Allergy/AdvReac Type Severity Reaction Status Date / Time No Known Allergies Allergy Verified 03/15/23 10:40 General Stated Complaint: GI Bleed CRISTINA: 3 Review of Systems Narrative: Review of Systems Constitutional: negative Eyes: negative ENT: negative Cardiovascular: negative Respiratory: negative Gastrointestinal: Rectal bleeding : negative Musculoskeletal: negative Skin: negative Neurologic: negative Psych: negative PFSH All Active Problems (Updated 03/15/23 @ 13:20 by Boaz Little MD) Hemorrhoid (Acute) Mild sleep apnea (Acute ~05/2022) Right knee pain (Acute) Left arm numbness (Acute) Fatigue (Acute) Hand pain (Acute) Bilateral knee pain (Acute) Joint pain (Acute) Constipation (Acute) Routine medical exam (Acute) Back pain (Acute) Eczema (Acute) Encounter to establish care (Acute) Tobacco abuse disorder (Acute) Erectile dysfunction (Acute) Surgical History History of placement of ear tubes Family History (Updated 09/11/21 @ 09:22 by Arabella Ovalles RN) Maternal Grandfather Cancer Brain cancer Social History (Updated 10/12/22 @ 08:36 by Ary Dorsey LPN) Smoking/Tobacco Use Status: Current every day Tobacco: How many years used: 18 Second Hand Exposure: Yes (both parents smoked) Smoking risk assessment performed?: Yes Alcohol Intake: never Drug use: Daily Substance use type: marijuana Adopted: No Caregiver/Support person: No Foster care: No Household members: spouse, family and children Housing: house Number of Children: 2 number of grandchildren: 0 Communication Needs: None Education Level: high school Do you need help understanding health information?: Rarely current occupation: Unemployed Pets and animals: Yes Pets and animals: cat(s) Sexually active: Yes Do you think of yourself as: straight/heterosexual Current gender identity: male What is your relationship status?: How often do you talk on the phone with friends or family?: three or more times per week How often do you get together with friends or relatives?: once per week Do you belong to any clubs or organized social groups?: no Panel score (0-1 are the most socially isolated patients): 2 What type of physical activity do you participate in: walking Duration: 45-60 minutes/day Frequency: 3-4 times per week Special jayne needs: No Seatbelt use: sometimes Helmet use: Yes Drive 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 Working smoke detector in home: Yes Fire extinguisher in home: Yes Carbon monox detector in home: Yes Firearms in home: No Do you feel safe at home: Yes Do you feel safe in your relationship?: Yes Exam Narrative Exam Narrative: Physical Examination General: alert, awake, cooperative, resting comfortably, no acute distress GI: Evidence of external hemorrhoid nonthrombosed, nonbleeding Course Vital Signs Vital signs: Vital Signs Temperature 36.6 C 03/15/23 10:36 Pulse 87 03/15/23 10:36 Respiratory Rate 20 03/15/23 10:36 Blood Pressure 123/81 03/15/23 10:36 Pulse Oximetry 99 03/15/23 10:36 Temperature 36.6 C 03/15/23 10:36 Temperature Source Oral 03/15/23 10:36 Pulse 87 03/15/23 10:36 Respiratory Rate 20 03/15/23 10:36 Respiratory Effort Normal, Non-Labored 03/15/23 10:41 Blood Pressure 123/81 03/15/23 10:36 Blood Pressure Position Sitting 03/15/23 10:36 Pulse Oximetry 99 03/15/23 10:36 Oxygen Delivery Method Room Air 03/15/23 10:36 Oxygen Flow Rate 0 03/15/23 10:36 Pain Level 0 03/15/23 10:36
[2023-03-15 13:35] VITALS: BP 118/74; PULSE 84; RESP 18; O2SAT 97
== END 2023-03-15 13:56 | disposition home or self-care (01) ==
PROVIDERS: Emergency Provider Emergency Medicine; PCP Nurse Practitioner
DX: K64.9 Unspecified hemorrhoids (principal)
CPT/HCPCS: 99283

== ENCOUNTER 2023-04-29 10:22 | Emergency (ER) | payer MEDICAID, SELFPAY ==
[2023-04-29 10:30] VITALS: BP 115/81; PULSE 104; RESP 18; TEMP 37.3; O2SAT 97
--- NOTE | 2023-04-29 11:00 | DI.CT_ITS ---
Exam(s) CT NECK W EXAM: CT NECK W INDICATION: ? jeannine/tonsillar abscess vs deep space infection. COMPARISON: No exams were available for comparison TECHNIQUE: FINDINGS: VISUALIZED PARANASAL SINUSES: There is mucosal thickening in both maxillary sinuses, not associated w ith acute fluid levels. Sphenoid and frontal sinuses are clear as are the ethmoidal air cells. Mast oid air cells are well aerated. NASOPHARYNX: Unremarkable ORODENTAL: Unremarkable. OROPHARYNX: Both tonsils are enlarged and enhance heterogeneously with suggestion bilateral tonsillar abscess is measuring approximately 1.5 x 1.5 cm bilaterally.. Uvula is midline. Airway is not obst ructed. There is no prevertebral soft tissue swelling. No gross lymphadenopathy. HYPOPHARYNX: Unremarkable. Valleculae and epiglottis and aryepiglottic folds appear normal. VOCAL CORDS: Unremarkable. No masses evident. Subglottic airway appears unremarkable. THYROID GLAND: Unremarkable. Normal size and no obvious nodules. SALIVARY GLANDS: Unremarkable. No significant findings in the parotid and submandibular glands. LYMPH NODES: There is no gross adenopathy evident in the neck and supraclavicular regions. OTHER: VISUALIZED LUNG APICES: No significant findings. IMPRESSION: 1. Both tonsils are enlarged and enhances heterogeneously. Suspicion for developing bilateral tonsi llar abscesses. Uvula is midline. There is no obstruction of the airway at this level. 2. No gross lymphadenopathy on either side of the neck. Called by myself to ER physician. RADIATION DOSE DELIVERED: 414.33mGy.cm Total DLP DATA REPOSITORY: All CT scans at this facility are submitted to the National Radiology Data Registry (NRDR) Dose Index Registry (DIR) with the [employer] ([employer]). RADIATION OPTIMIZATION: All CT scans at this facility use at least one of these dose optimization te chniques: automated exposure control; mA and/or kV adjustment per patient size (includes targeted exa ms where dose is matched to clinical indication); or iterative reconstruction.
--- NOTE | 2023-04-29 11:05 | W.ED.GENAD ---
Discharge Plan Disposition Patient Disposition: Home Condition: Good Discharge Details Clinical Impression: Tonsillar abscess Primary Care Provider: Joan Webster ED Provider: Kellee Sneed Home Meds and New Rx's Prescriptions: New clindamycin HCl [Cleocin HCl] 300 mg capsule 600 mg PO TID Qty: 84 0RF No Action triamcinolone acetonide 0.1 % cream 1 applic TP BID PRN (Reason: Eczema left forearm and dorsal surface feet) Qty: 80 3RF gabapentin 600 mg tablet 600 mg PO BID Qty: 180 1RF ibuprofen 800 mg tablet 800 mg PO TID PRN (Reason: pain) Qty: 180 3RF hydrocortisone acetate [Anusol-HC] 25 mg suppository 25 mg MO DAILY Qty: 7 0RF Patient Comments: not taking Discharge Instructions Instructions: Peritonsillar Abscess (ED) Additional Instructions: Tylenol and ibuprofen over the counter for pain; follow the directions on the bottle. Call your primary care doctor today to schedule an appointment to follow up on your visit here. Return to the emergency department for new or worsening symptoms including fever, inability to swallow, neck stiffness or pain or swelling, difficulty breathing, inability to open your mouth, or if you have any other concerns. Referrals: Joan Webster, JACQUELINE [Primary Care Provider] - [facility] General Date/Time Provider Initiated Documentation: 04/29/23 10:52. Related Data Home Medications Medication Instructions Recorded Confirmed triamcinolone acetonide 0.1 % 1 applic topical BID PRN Eczema 09/26/19 04/29/23 topical cream left forearm and dorsal surface feet #80 grams gabapentin 600 mg tablet 600 mg PO BID #180 tabs 10/12/22 04/29/23 ibuprofen 800 mg tablet 800 mg PO TID PRN pain #180 tabs 11/09/22 04/29/23 hydrocortisone acetate 25 mg 25 mg MO DAILY #7 ea 03/15/23 rectal suppository (Anusol-HC) clindamycin HCl 300 mg capsule 600 mg PO TID #84 caps 04/29/23 (Cleocin HCl) Previous Rx's Medication Instructions Recorded triamcinolone acetonide 0.1 % 1 applic topical BID PRN Eczema 09/26/19 topical cream left forearm and dorsal surface feet #80 grams gabapentin 600 mg tablet 600 mg PO BID #180 tabs 02/20/23 ibuprofen 800 mg tablet 800 mg PO TID PRN pain #180 tabs 11/09/22 hydrocortisone acetate 25 mg 25 mg MO DAILY #7 ea 03/15/23 rectal suppository (Anusol-HC) clindamycin HCl 300 mg capsule 600 mg PO TID #84 caps 04/29/23 (Cleocin HCl) Allergies Allergy/AdvReac Type Severity Reaction Status Date / Time No Known Allergies Allergy Verified 04/29/23 10:32 General Stated Complaint: Sorethroat CRISTINA: 3 PFSH All Active Problems (Updated 04/29/23 @ 15:18 by Kellee Sneed MD) Tonsillar abscess (Acute) Mild sleep apnea (Acute ~05/2022) Right knee pain (Acute) Left arm numbness (Acute) Fatigue (Acute) Hand pain (Acute) Bilateral knee pain (Acute) Joint pain (Acute) Constipation (Acute) Routine medical exam (Acute) Back pain (Acute) Eczema (Acute) Encounter to establish care (Acute) Tobacco abuse disorder (Acute) Erectile dysfunction (Acute) Surgical History History of placement of ear tubes Family History (Updated 09/11/21 @ 09:22 by Arabella Ovalles RN) Maternal Grandfather Cancer Brain cancer Social History (Updated 10/12/22 @ 08:36 by Ary Dorsey LPN) Smoking/Tobacco Use Status: Current every day Tobacco: How many years used: 18 Second Hand Exposure: Yes (both parents smoked) Smoking risk assessment performed?: Yes Alcohol Intake: never Drug use: Daily Substance use type: marijuana Adopted: No Caregiver/Support person: No Foster care: No Household members: spouse, family and children Housing: house Number of Children: 2 number of grandchildren: 0 Communication Needs: None Education Level: high school Do you need help understanding health information?: Rarely current occupation: Unemployed Pets and animals: Yes Pets and animals: cat(s) Sexually active: Yes Do you think of yourself as: straight/heterosexual Current gender identity: male What is your relationship status?: How often do you talk on the phone with friends or family?: three or more times per week How often do you get together with friends or relatives?: once per week Do you belong to any clubs or organized social groups?: no Panel score (0-1 are the most socially isolated patients): 2 What type of physical activity do you participate in: walking Duration: 45-60 minutes/day Frequency: 3-4 times per week Special jayne needs: No Seatbelt use: sometimes Helmet use: Yes 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 Working smoke detector in home: Yes Fire extinguisher in home: Yes Carbon monox detector in home: Yes Firearms in home: No Do you feel safe at home: Yes Do you feel safe in your relationship?: Yes Course Vital Signs Vital signs: Vital Signs Temperature 37.3 C 04/29/23 10:30 Pulse 104 H 04/29/23 10:30 Respiratory Rate 18 04/29/23 10:30 Blood Pressure 115/81 04/29/23 10:30 Pulse Oximetry 97 04/29/23 10:30 Temperature 37.3 C 04/29/23 10:30 Temperature Source Temporal Artery Scan 04/29/23 10:30 Pulse 104 H 04/29/23 10:30 Respiratory Rate 18 04/29/23 10:30 Respiratory Effort Normal, Non-Labored 04/29/23 10:34 Blood Pressure 115/81 04/29/23 10:30 Blood Pressure Position Sitting 04/29/23 10:30 Pulse Oximetry 97 04/29/23 10:30 Oxygen Delivery Method Room Air 04/29/23 10:30 Oxygen Flow Rate 0 04/29/23 10:30 Lab/Test Results Lab/Test Results: 04/29/23 10:55 Tonsil - Not Specified Group A Streptococcus Culture - Pending
[2023-04-29 11:29] LABS: Lactate 0.6 mmol/L (0.6-1.4)
[2023-04-29 11:30] LABS: Abs Immature Grans 0.07 10^3/uL (0.0-0.06); Absolute Basophil Count 0.03 10^3/uL (0.0-0.2); Absolute Eosinophil Count 0.04 10^3/uL (0.0-0.7); Absolute Monocyte Count 0.67 10^3/uL (0.1-0.8); Basophils % 0.2; Eosinophils % 0.3; HCT 40.9 % (40.0-50.0); HGB 14.4 g/dL (13.5-17.5); Immature Grans % 0.5; Lymphocytes % 9.4; MCH 31.9 pg (27.0-33.0); MCHC 35.2 % (32.0-36.0); MCV 91 fL (80-95); MPV 9.3 fL (8.0-11.0); Monocytes % 4.6; Platelet Count 223 10^3/uL (130-400); RBC 4.52 10^6/uL (4.36-5.78); RDW 11.9 % (11.8-14.1); RDW-SD 39.7 fL; WBC 14.63 10^3/uL (4.4-10.8)
[2023-04-29 11:31] LABS: Absolute Lymphocyte Count 1.38 10^3/uL (1.2-3.4); Absolute Neutrophil Count 12.44 10^3/uL (1.2-6.7)
[2023-04-29 11:51] LABS: ALT 12 U/L (16-63); AST 11 U/L (15-37); Albumin 4.2 g/dL (3.4-5.0); Alkaline Phosphatase 113 U/L (46-116); Anion Gap 9.1 mmol/L (3-11); BUN 9 mg/dL (7-18); Bilirubin, Total 0.8 mg/dL (0.2-1.0); CO2 27.9 mmol/L (21.0-32.0); Chloride 104 mmol/L (98-107); Estimated GFR 101.28 (mL/min/1.73m2); Glucose 85 mg/dL (74-106); Potassium 3.4 mmol/L (3.5-5.1); Sodium 141 mmol/L (136-145); Total Protein 7.9 g/dL (6.4-8.2)
[2023-04-29] MEDS: Omnipaque 350 MG/ML 500 ML BTL-Imaging package IJ (12:24)
[2023-04-29] MEDS: Normal Saline - Diluent 50 ML VIAL IJ (12:24)
[2023-04-29] MEDS: Ketorolac 15 MG/ML VIAL IVP (14:10)
[2023-04-29] MEDS: Dexamethasone 10 MG/ML VIAL IVP (14:12)
[2023-04-29] MEDS: CLINDAMYCIN 600 MG/50 ML BAG 100 MG IVPB (14:14)
--- NOTE | 2023-04-29 15:02 | NUR.NOTE ---
pt given jolie and omar hobson for PO challenge Nursing Note:
[2023-04-29 15:15] VITALS: BP 118/65; PULSE 82; TEMP 36.7; O2SAT 98
--- NOTE | 2023-04-29 15:22 | W.ED.GENAD ---
Discharge Plan Disposition Patient Disposition: Home Condition: Good Discharge Details Clinical Impression: Tonsillar abscess Primary Care Provider: Joan Webstre ED Provider: Kellee Sneed Home Meds and New Rx's Prescriptions: New clindamycin HCl [Cleocin HCl] 300 mg capsule 600 mg PO TID Qty: 84 0RF No Action triamcinolone acetonide 0.1 % cream 1 applic TP BID PRN (Reason: Eczema left forearm and dorsal surface feet) Qty: 80 3RF gabapentin 600 mg tablet 600 mg PO BID Qty: 180 1RF ibuprofen 800 mg tablet 800 mg PO TID PRN (Reason: pain) Qty: 180 3RF hydrocortisone acetate [Anusol-HC] 25 mg suppository 25 mg NM DAILY Qty: 7 0RF Patient Comments: not taking Discharge Instructions Instructions: Peritonsillar Abscess (ED) Additional Instructions: Tylenol and ibuprofen over the counter for pain; follow the directions on the bottle. Call your primary care doctor today to schedule an appointment to follow up on your visit here. Return to the emergency department for new or worsening symptoms including fever, inability to swallow, neck stiffness or pain or swelling, difficulty breathing, inability to open your mouth, or if you have any other concerns. 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 No systemic symptoms. Borderline tachycardia to 103 on arrival, vital signs otherwise reassuring, afebrile. No clear peritonsiallar abscess on exam but bilateral tonsilar edema and injection with bilateral cervical lymphadenopathy. Overall appears well but with tachycardia, further evaluated with labs as below. CBC with leukoctyosis to 14.6, otherwise reassuring. CMP with no acidosis, no significant abnormalities. CT independently reviewed; no clear abscess on my view, agree with radiology read below (bilateral enlarged tonsils, possible developing tonsillar abscess). No retrophargeyal abscess or deep space infection. Will treat symptoms with toradol and decadron; given IV clindamycin here. On reassessment remains well appearing, normal vital signs, symptoms improved and able to tolerate PO. Low suspicion for sepsis. Prescribed 14 day course of clindamycin. Reviewed s/s of worsening infection. Discharged home; discharge instructions including return precautions were reviewed with patient who verbalized understanding. All questions were answered and they are in full agreement with the plan. Imaging Data Radiologic Study: Imaging: CT Scan Radiologist's impression: IMPRESSION: 1.? Both tonsils are enlarged and enhances heterogeneously.? Suspicion for developing bilateral tonsillar abscesses.? Uvula is midline.? There is no obstruction of the airway at this level. 2.? No gross lymphadenopathy on either side of the neck. Lab Data Lab results reviewed: Yes I reviewed the patient's lab results. Labs: 04/29/23 10:55 Tonsil - Not Specified Group A Streptococcus Culture - Pending Laboratory Tests Range/Units 04/29/23 04/29/23 04/29/23 11:20 11:20 11:20 WBC (4.4-10.8) 10^3/uL 14.63 H RBC (4.36-5.78) 10^6/uL 4.52 Hgb (13.5-17.5) g/dL 14.4 Hct (40.0-50.0) % 40.9 MCV (80-95) fL 91 MCH (27.0-33.0) pg 31.9 MCHC (32.0-36.0) % 35.2 RDW (11.8-14.1) % 11.9 Plt Count (130-400) 10^3/uL 223 MPV (8.0-11.0) fL 9.3 Immature Gran % 0.5 Neutrophils % 85.0 Lymphocytes % 9.4 Monocytes % 4.6 Eosinophils % 0.3 Basophils % 0.2 Nucleated RBC % (0.0-0.3) % 0.0 Absolute Neutrophils (1.2-6.7) 10^3/uL 12.44 H Absolute Lymphocytes (1.2-3.4) 10^3/uL 1.38 Absolute Monocytes (0.1-0.8) 10^3/uL 0.67 Absolute Eosinophils (0.0-0.7) 10^3/uL 0.04 Absolute Basophils (0.0-0.2) 10^3/uL 0.03 VBG Lactate (0.6-1.4) mmol/L 0.6 Sodium (136-145) mmol/L 141 Potassium (3.5-5.1) mmol/L 3.4 L Chloride (98-107) mmol/L 104 Carbon Dioxide (21.0-32.0) mmol/L 27.9 Anion Gap (3-11) mmol/L 9.1 BUN (7-18) mg/dL 9 Creatinine (0.70-1.30) mg/dL 1.0 Est GFR (CKD-EPI 2020) (mL/min/1.73m2) 101.28 Glucose (74-106) mg/dL 85 Calcium (8.5-10.1) mg/dL 9.0 Total Bilirubin (0.2-1.0) mg/dL 0.8 AST (15-37) U/L 11 L ALT (16-63) U/L 12 L Alkaline Phosphatase (46-116) U/L 113 Total Protein (6.4-8.2) g/dL 7.9 Albumin (3.4-5.0) g/dL 4.2 HPI General Mode of arrival: ambulatory. Date/Time Provider Initiated Documentation: 04/29/23 10:52. Limitations to Documentation: no limitations. Information obtained by: patient. HPI Narrative: Previously healthy 33yo male presenting with throat pain x 3 days with difficulty swallowing today. Pain is sharp, worse with swallowing; he has been unable to take OTC pain medications. No difficulty breathing. No neck pain. No fever. He is otherwise in his usual state of health. Related Data Home Medications Medication Instructions Recorded Confirmed triamcinolone acetonide 0.1 % 1 applic topical BID PRN Eczema 09/26/19 04/29/23 topical cream left forearm and dorsal surface feet #80 grams gabapentin 600 mg tablet 600 mg PO BID #180 tabs 10/12/22 04/29/23 ibuprofen 800 mg tablet 800 mg PO TID PRN pain #180 tabs 11/09/22 04/29/23 hydrocortisone acetate 25 mg 25 mg NM DAILY #7 ea 03/15/23 rectal suppository (Anusol-HC) clindamycin HCl 300 mg capsule 600 mg PO TID #84 caps 04/29/23 (Cleocin HCl) Previous Rx's Medication Instructions Recorded triamcinolone acetonide 0.1 % 1 applic topical BID PRN Eczema 09/26/19 topical cream left forearm and dorsal surface feet #80 grams gabapentin 600 mg tablet 600 mg PO BID #180 tabs 10/12/22 ibuprofen 800 mg tablet 800 mg PO TID PRN pain #180 tabs 11/09/22 hydrocortisone acetate 25 mg 25 mg NM DAILY #7 ea 03/15/23 rectal suppository (Anusol-HC) clindamycin HCl 300 mg capsule 600 mg PO TID #84 caps 04/29/23 (Cleocin HCl) Allergies Allergy/AdvReac Type Severity Reaction Status Date / Time No Known Allergies Allergy Verified 04/29/23 10:32 General Stated Complaint: Sorethroat CRISTINA: 3 Review of Systems Narrative: see HPI PFSH All Active Problems (Updated 04/29/23 @ 15:18 by Kellee Sneed MD) Tonsillar abscess (Acute) Mild sleep apnea (Acute ~05/2022) Right knee pain (Acute) Left arm numbness (Acute) Fatigue (Acute) Hand pain (Acute) Bilateral knee pain (Acute) Joint pain (Acute) Constipation (Acute) Routine medical exam (Acute) Back pain (Acute) Eczema (Acute) Encounter to establish care (Acute) Tobacco abuse disorder (Acute) Erectile dysfunction (Acute) Surgical History History of placement of ear tubes Family History (Updated 09/11/21 @ 09:22 by Arabella Ovalles RN) Maternal Grandfather Cancer Brain cancer Social History (Updated 10/12/22 @ 08:36 by Ary Dorsye LPN) Smoking/Tobacco Use Status: Current every day Tobacco: How many years used: 18 Second Hand Exposure: Yes (both parents smoked) Smoking risk assessment performed?: Yes Alcohol Intake: never Drug use: Daily Substance use type: marijuana Adopted: No Caregiver/Support person: No Foster care: No Household members: spouse, family and children Housing: house Number of Children: 2 number of grandchildren: 0 Communication Needs: None Education Level: high school Do you need help understanding health information?: Rarely current occupation: Unemployed Pets and animals: Yes Pets and animals: cat(s) Sexually active: Yes Do you think of yourself as: straight/heterosexual Current gender identity: male What is your relationship status?: How often do you talk on the phone with friends or family?: three or more times per week How often do you get together with friends or relatives?: once per week Do you belong to any clubs or organized social groups?: no Panel score (0-1 are the most socially isolated patients): 2 What type of physical activity do you participate in: walking Duration: 45-60 minutes/day Frequency: 3-4 times per week Special jayne needs: No Seatbelt use: sometimes Helmet use: Yes 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 Head: Normocephalic, atraumatic Neck: Trachea midline, Neck supple. ENT: MMM. Diffuse posterior oropharygenal erythema with no exudate. Bilateral tonsilar edema without clear abscess. Uvula midline. . Cardiac: RRR, no murmurs appreciated Resp: No respiratory distress. CTAB. Abd: Soft, non-distended, nontender : No suprapubic tenderness. No CVA tenderness. Extremities: No deformities. No peripheral edema. Neurologic: GCS 15. Moves all extremities freely against gravity Course Vital Signs Vital signs: Vital Signs Temperature 37.3 C 04/29/23 10:30 Pulse 104 H 04/29/23 10:30 Respiratory Rate 18 04/29/23 10:30 Blood Pressure 115/81 04/29/23 10:30 Pulse Oximetry 97 04/29/23 10:30 Temperature 36.7 C 04/29/23 15:15 Temperature Source Tympanic 04/29/23 15:15 Pulse 82 04/29/23 15:15 Respiratory Rate 18 04/29/23 10:30 Respiratory Effort Normal, Non-Labored 04/29/23 10:34 Blood Pressure 118/65 04/29/23 15:15 Blood Pressure Position Sitting 04/29/23 10:30 Pulse Oximetry 98 04/29/23 15:15 Oxygen Delivery Method Room Air 04/29/23 15:15 Oxygen Flow Rate 0 04/29/23 15:15 Pain Level 4 04/29/23 15:15 Lab/Test Results Lab/Test Results: 04/29/23 10:55 Tonsil - Not Specified Group A Streptococcus Culture - Pending Laboratory Tests Range/Units 04/29/23 04/29/23 04/29/23 11:20 11:20 11:20 WBC (4.4-10.8) 10^3/uL 14.63 H RBC (4.36-5.78) 10^6/uL 4.52 Hgb (13.5-17.5) g/dL 14.4 Hct (40.0-50.0) % 40.9 MCV (80-95) fL 91 MCH (27.0-33.0) pg 31.9 MCHC (32.0-36.0) % 35.2 RDW (11.8-14.1) % 11.9 Plt Count (130-400) 10^3/uL 223 MPV (8.0-11.0) fL 9.3 Immature Gran % 0.5 Neutrophils % 85.0 Lymphocytes % 9.4 Monocytes % 4.6 Eosinophils % 0.3 Basophils % 0.2 Nucleated RBC % (0.0-0.3) % 0.0 Absolute Neutrophils (1.2-6.7) 10^3/uL 12.44 H Absolute Lymphocytes (1.2-3.4) 10^3/uL 1.38 Absolute Monocytes (0.1-0.8) 10^3/uL 0.67 Absolute Eosinophils (0.0-0.7) 10^3/uL 0.04 Absolute Basophils (0.0-0.2) 10^3/uL 0.03 VBG Lactate (0.6-1.4) mmol/L 0.6 Sodium (136-145) mmol/L 141 Potassium (3.5-5.1) mmol/L 3.4 L Chloride (98-107) mmol/L 104 Carbon Dioxide (21.0-32.0) mmol/L 27.9 Anion Gap (3-11) mmol/L 9.1 BUN (7-18) mg/dL 9 Creatinine (0.70-1.30) mg/dL 1.0 Est GFR (CKD-EPI 2020) (mL/min/1.73m2) 101.28 Glucose (74-106) mg/dL 85 Calcium (8.5-10.1) mg/dL 9.0 Total Bilirubin (0.2-1.0) mg/dL 0.8 AST (15-37) U/L 11 L ALT (16-63) U/L 12 L Alkaline Phosphatase (46-116) U/L 113 Total Protein (6.4-8.2) g/dL 7.9 Albumin (3.4-5.0) g/dL 4.2
== END 2023-04-29 15:30 | disposition home or self-care (01) ==
PROVIDERS: Emergency Provider Student in an Organized Health Care Education/Training Program; PCP Nurse Practitioner
DX: J36 Peritonsillar abscess
CPT/HCPCS: 36415; 70491; 80053; 87426; 96365; 96375; 99285; 83605; 85025; 87081; 99284; J1100; J1885

== ENCOUNTER 2024-08-27 10:24 | Emergency (ER) | payer MEDICAID, SELFPAY ==
[2024-08-27 10:31] VITALS: BP 110/74; PULSE 97; RESP 15; TEMP 36.6; O2SAT 97
[2024-08-27 10:36] VITALS: BP 110/74; PULSE 97; RESP 15; TEMP 36.6; O2SAT 97
[2024-08-27 10:40] LABS: Source Nasal/Nares
[2024-08-27 11:15] LABS: COVID-19 PCR POSITIVE (Negative)
--- NOTE | 2024-08-27 11:18 | ED.GENADUL_ITS ---
Discharge Plan Disposition Patient Disposition: Home Condition: Stable Discharge Details Clinical Impression: COVID-19 Primary Care Provider: Joan Webster ED Provider: Jose Belcher Home Meds and New Rx's Prescriptions: Continued triamcinolone acetonide 0.1 % cream 1 applic TP BID PRN (Reason: Eczema left forearm and dorsal surface feet) Qty: 80 3RF ibuprofen 800 mg tablet 800 mg PO TID PRN (Reason: pain) Qty: 270 3RF gabapentin 600 mg tablet 1,200 mg PO TID Qty: 360 3RF Discharge Instructions Instructions: Albuterol, COVID-19 ED Additional Instructions: You were seen in the emergency department for your cough for about a week. You are positive for COVID. Your vitals are perfectly fine, you are young and otherwise healthy and vaccinated for COVID I suspect this will clear up in the next week. It is safe to assume that if your and kids are getting sick that it is COVID should act accordingly, please return to the emergency department for any severe respiratory distress, I provided you with an albuterol inhaler to go. Please use therapeutic dosing of Tylenol (acetamenophen) & Advil (ibuprofen) in an alternating fashion as follows: Take 1000mg of Tylenol every 6 hours without missing doses- that is 4 times per day. Fdc in between the Tylenol dosings, take 400-600mg of Advil also on a 6 hour schedule, that is also 4 times per day. The daily maximum dosing of Tylenol is 4000mg, and the daily maximum dosing of Advil is 2400mg. This is safe to do for weeks. Please note that some common cold medications & prescription pain medications may contain acetamenophen and you need to read OTC drug labels and factor that in to maximum daily dosings. Referrals: Joan Webster, JACQUELINE [Primary Care Provider] - Discharge Data Discharge Date/Time-TO BE ENTERED AT DEPARTURE: 08/27/24 12:11 HPI General Date/Time Provider Initiated Documentation: 08/27/24 10:42 . HPI Narrative: 34 year-old male presents to ED today by POV/ambulating with a chief complaint of productive cough, R ear pain with onset over a week ago, worsening, states his whole upper body hurts. Quality described as generalized cough/URI symptoms, no radiation to fever, nausea/vomiting, shortness of breath, chest pain, severe sore throat. Severity is described as moderate. Palliating factors include nothing specific attempted. Provoking factors include nothing specific. Patient not anticoagulated. Related Data Home Medications ?Medication ?Instructions ?Recorded ?Confirmed ibuprofen 800 mg tablet 800 mg PO TID PRN pain #270 tabs 11/09/23 01/14/24 triamcinolone acetonide 0.1 % 1 applic topical BID PRN Eczema 11/09/23 01/14/24 topical cream left forearm and dorsal surface feet #80 grams gabapentin 600 mg tablet 1,200 mg (2 x 600 mg) PO TID #360 02/07/24 tabs Previous Rx's ?Medication ?Instructions ?Recorded ibuprofen 800 mg tablet 800 mg PO TID PRN pain #270 tabs 11/09/23 triamcinolone acetonide 0.1 % 1 applic topical BID PRN Eczema 11/09/23 topical cream left forearm and dorsal surface feet #80 grams gabapentin 600 mg tablet 1,200 mg (2 x 600 mg) PO TID #360 02/07/24 tabs Allergies Allergy/AdvReac Type Severity Reaction Status Date / Time No Known Allergies Allergy Verified 01/14/24 09:54 General Stated Complaint: RespSymp CRISTINA: 4 Review of Systems All systems reviewed & are unremarkable except as noted in HPI and below Exam Narrative Exam Narrative: GENERAL APPEARANCE: Well-nourished, non-toxic, awake and alert, atraumatic, no acute distress. SKIN: Warm, pink, dry, intact, without rashes/lesions/ulcerations. HEAD: Normocephalic, atraumatic, normal hair distribution for gender/age. EYES: Normal conjunctiva, no exudates on lids/lashes. ENT: Nares patent, no circumoral cyanosis, no facial swelling NECK: Supple, trachea midline, painless cervical ROM. LUNGS/CHEST: Lungs CTA bilaterally, non-labored respirations, normal A/P diameter, symmetrical expansion, no chest wall deformity HEART (CV/PV): Regular rate and rhythm without murmur, no peripheral edema, no JVD. ABDOMEN: Soft, non-distended, no guarding. MSK: Normal ROM, no swelling/deformity to bilateral UEs or LEs, moving all extremities without weakness, no cyanosis, spine midline without tenderness, normal curvature. NEURO: Mental Status AAOx4 - alert to person, place, time, events No facial droop, no forehead involvement. Motor: No focal weakness - strength 5/5 in bilateral UEs and LEs, proximal and distal, symmetric. Sensory: sensation intact to light touch globally. Gait normal: patient ambulated without ataxia into ED room. PSYCH: euthymic, cooperative, pleasant, appropriate speech Course Vital Signs Vital signs: Vital Signs Temperature 36.6 C 08/27/24 10:31 Pulse 97 H 08/27/24 10:31 Respiratory Rate 15 08/27/24 10:31 Blood Pressure 110/74 08/27/24 10:31 Pulse Oximetry 97 08/27/24 10:31 Temperature 36.6 C 08/27/24 10:36 Temperature Source Oral 08/27/24 10:36 Pulse 97 H 08/27/24 10:36 Respiratory Rate 15 08/27/24 10:36 Respiratory Effort Normal 08/27/24 10:37 Respiratory Depth Normal 08/27/24 10:37 Blood Pressure 110/74 08/27/24 10:36 Blood Pressure Position Sitting 08/27/24 10:36 Pulse Oximetry 97 08/27/24 10:36 Oxygen Delivery Method Room Air 08/27/24 10:36 Oxygen Flow Rate 0 08/27/24 10:36 Lab/Test Results Lab/Test Results: Laboratory Tests Range/Units 08/27/24 08/27/24 08/27/24 10:36 10:36 10:36 COVID-19 Source Nasal/Nares Cancelled SARS-CoV-2 (PCR) (Negative) POSITIVE A* Cancelled Influenza Type A (PCR) Cancelled Influenza Type B (PCR) Cancelled RSV (PCR) Cancelled Medical Decision Making This dictation utilizes [id number] dictation software and may contain unedited grammatical errors. 34 year-old male presents to ED today by POV/ambulating with a chief complaint of productive cough, R ear pain with onset over a week ago, worsening, states his whole upper body hurts. Quality described as generalized cough/URI symptoms, no radiation to fever, nausea/vomiting, shortness of breath, chest pain, severe sore throat. Severity is described as moderate. Palliating factors include nothing specific attempted. Provoking factors include nothing specific. Patients' medical history: noncontributory. Family and social history: noncontributory. Pertinent exam findings / vital signs include lungs CTA, nontoxic, no hypoxia. Differential / pathologies of concern include viral syndrome, unlikely PNA/hypoxic resp failure. Diagnostic studies of: -Covid-19 PCR, positive. Interventions of: -Albuterol inhaler to go. ED Course/Assessment/Plan: 34 otherwise [id number] male presents with upper respiratory infection for over 1 week and is positive for COVID, he has no major comorbidities and I did executive assistant to general counsel him that he would likely get better with simple [id number] remedies, he is vaccinated for COVID, I did provide an inhaler for relief of symptomatic shortness of breath, stress strict return criteria for any acute worsening especially with respiratory distress. Findings not consistent with severe COVID, hypoxic respiratory failure. Disposition of COVID-19. Patient verbalized understanding of the plan and return to ED criteria and engaged in shared decision making. Medical Records Medical records reviewed: Yes I reviewed the patient's medical records. Lab Data Lab results reviewed: Yes I reviewed the patient's lab results. Labs: Laboratory Tests Range/Units 08/27/24 08/27/24 08/27/24 10:36 10:36 10:36 COVID-19 Source Nasal/Nares Cancelled SARS-CoV-2 (PCR) (Negative) POSITIVE A* Cancelled Influenza Type A (PCR) Cancelled Influenza Type B (PCR) Cancelled RSV (PCR) Cancelled Quality:SDOH Health Related Social Needs: No Data to Display PFSH All Active Problems (Updated 08/27/24 @ 11:56 by JAYDEN Lam) COVID-19 (Acute) Chronic low back pain (Chronic) Acute tonsillitis (Acute) Mild sleep apnea (Acute ~05/2022) Right knee pain (Acute) Left arm numbness (Acute) Fatigue (Acute) Hand pain (Acute) Bilateral knee pain (Acute) Joint pain (Acute) Constipation (Acute) Routine medical exam (Acute) Back pain (Acute) Eczema (Acute) Encounter to establish care (Acute) Tobacco abuse disorder (Acute) Erectile dysfunction (Acute) Surgical History History of placement of ear tubes Family History Maternal Grandfather Cancer Brain cancer Social History Smoking/Tobacco Use Status: Current every day Tobacco: How many years used: 18 Second Hand Exposure: Yes (both parents smoked) Smoking risk assessment performed?: Yes Alcohol Intake: never Drug use: Daily Substance use type: marijuana Adopted: No Caregiver/Support person: No Foster care: No Household members: spouse, family and children Housing: house Number of Children: 2 number of grandchildren: 0 Communication Needs: None Education Level: high school Do you need help understanding health information?: Rarely current occupation: Unemployed Pets and animals: Yes Pets and animals: cat(s) Sexually active: Yes Do you think of yourself as: straight/heterosexual Current gender identity: male What is your relationship status?: How often do you talk on the phone with friends or family?: three or more times per week How often do you get together with friends or relatives?: once per week Do you belong to any clubs or organized social groups?: no Panel score (0-1 are the most socially isolated patients): 2 What type of physical activity do you participate in: walking Duration: 45-60 minutes/day Frequency: 3-4 times per week Special jayne needs: No Seatbelt use: sometimes Helmet use: Yes Drive 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
[2024-08-27] MEDS: Albuterol HFA 8 GM 60 PUFF INH IH (12:10)
[2024-08-27] MEDS: Inhaler, Assist Device 1 EACH MC (12:11)
== END 2024-08-27 12:11 | disposition home or self-care (01) ==
PROVIDERS: Student in an Organized Health Care Education/Training Program; Emergency Provider Physician Assistant; PCP Nurse Practitioner
DX: U07.1 COVID-19 (principal); R05.9 Cough, unspecified
CPT/HCPCS: 87635; 87637; 99283

== ENCOUNTER 2025-03-04 23:31 | Emergency (ER) | payer MEDICAID, SELFPAY ==
[2025-03-04 23:54] VITALS: BP 124/60; PULSE 77; TEMP 36.9; O2SAT 97
[2025-03-05] MEDS: Fluorescein STRIPS 100/BOX 1 MG (01:27)
[2025-03-05] MEDS: Tetracaine 0.5% 4 ML BTL (01:27)
--- NOTE | 2025-03-05 01:40 | ED.GENADUL_ITS ---
Discharge Plan Disposition Patient Disposition: Home Discharge Details Clinical Impression: Foreign body, intraocular Primary Care Provider: Joan Webster ED Provider: Kellee Sneed Home Meds and New Rx's Prescriptions: No Action No Known Home Meds Discharge Instructions Instructions: Foreign Body in Eye (DC) Additional Instructions: Tylenol and ibuprofen over the counter for pain; follow the directions on the bottle. Moxifloxacin drops 4 times a day in your right eye Erythromycin ointment 4 times day in your right eye Go to [facility] at 10am in the morning to be seen by ophthalmology. Go to level 4B to check in. If you cannot make this visit, please call them at [phone] [address] Stand Alone Forms: Work Release HPI General Mode of arrival: ambulatory . Date/Time Provider Initiated Documentation: 03/04/25 23:35 . Limitations to Documentation: no limitations . Information obtained by: patient . HPI Narrative: 35yo M presenting with concern for metal in eye. Was working with metal this afternoon, did not feel anything strike his eye but since then has had pain and tearing to his right eye. No blurry vision. Does not wear contacts. No hx eye surgeries. Otherwise in his usual state of health. Related Data Home Medications ?Medication ?Instructions ?Recorded ?Confirmed Unknown [No Known Home Meds] 03/05/25 0 03/05/25 Allergies Allergy/AdvReac Type Severity Reaction Status Date / Time No Known Allergies Allergy Verified 03/04/25 23:57 General Stated Complaint: EyeProblem CRISTINA: 4 Review of Systems Narrative: see HPI Exam Narrative Exam Narrative: General: Alert, well appearing, well nourished, in no acute distress. Head: Normocephalic, atraumatic Neck: Trachea midline, ?Neck supple. Extremities: ?No deformities.? No peripheral edema. Neurologic: GCS 15. ? Moves all extremities freely against gravity Eye: ?PERRL ?EOM full and pain free.? Visual molina intact to confrontation bilaterally R: ? ? VA- 20/20 ? IOP- 19.4 ? ?Lids/lashes- nml ?Conjuctiva-injected ?Cornea: Metallic foreign body at 9'oclock just lateral to pupil ? Flur: -Seidles L: ? ? VA- 20/20 ? ?Lids/lashes- nml ?Conjuctiva-white ?Cornea: Clear ? Course Vital Signs Vital signs: Vital Signs Temperature 36.9 C 03/04/25 23:54 Pulse 77 03/04/25 23:54 Blood Pressure 124/60 03/04/25 23:54 Pulse Oximetry 97 03/04/25 23:54 Temperature 36.9 C 03/04/25 23:54 Pulse 77 03/04/25 23:54 Blood Pressure 124/60 03/04/25 23:54 Pulse Oximetry 97 03/04/25 23:54 Pain Level 8 03/04/25 23:54 Procedure Foreign Body Removal Date of Procedure: 03/05/25. Time of procedure: 04:00 Provider that performed the procedure: Kellee Sneed Patient Consented: Verbally Location of procedure: Right eye Medical Decision Making 35yo M presenting with concern for metal in eye; has right eye pain and tearing after working with metal this afternoon. Vital signs reassuring on arrival. Normal visual acuity. Right eye with conjuctival injection, small metallic appearing foreign body in cornea. No evidence of globe rupture. Removal attempted with cotton swab followed by 25g needle; good amount removed but some remains present. Repeat fluor. exam with -Seidels, small corneal abrasion at removal site. Tetanus booster updated. Discussed with [facility] ophthal[facility] plan for followup in clinic today at 10am; discharged with drops and erythromycin ointment. Discharged home; discharge instructions and return precautions were reviewed with patient who verbalized understanding. All questions were answered and he is in full agremeent with the plan. PFSH All Active Problems (Updated 03/05/25 @ 02:18 by Kellee Sneed MD) Foreign body, intraocular (Acute) COVID-19 (Acute) Chronic low back pain (Chronic) Acute tonsillitis (Acute) Mild sleep apnea (Acute ~05/2022) Right knee pain (Acute) Left arm numbness (Acute) Fatigue (Acute) Hand pain (Acute) Bilateral knee pain (Acute) Joint pain (Acute) Constipation (Acute) Routine medical exam (Acute) Back pain (Acute) Eczema (Acute) Encounter to establish care (Acute) Tobacco abuse disorder (Acute) Erectile dysfunction (Acute) Surgical History History of placement of ear tubes Family History Maternal Grandfather Cancer Brain cancer Social History Smoking/Tobacco Use Status: Current every day Tobacco: How many years used: 18 Second Hand Exposure: Yes (both parents smoked) Smoking risk assessment performed?: Yes Alcohol Intake: never Drug use: Daily Substance use type: marijuana Adopted: No Caregiver/Support person: No Foster care: No Household members: spouse, family and children Housing: house Number of Children: 2 number of grandchildren: 0 Communication Needs: None Education Level: high school Do you need help understanding health information?: Rarely current occupation: Unemployed Pets and animals: Yes Pets and animals: cat(s) Sexually active: Yes Do you think of yourself as: straight/heterosexual Current gender identity: male What is your relationship status?: How often do you talk on the phone with friends or family?: three or more times per week How often do you get together with friends or relatives?: once per week Do you belong to any clubs or organized social groups?: no Panel score (0-1 are the most socially isolated patients): 2 What type of physical activity do you participate in: walking Duration: 45-60 minutes/day Frequency: 3-4 times per week Special jayne needs: No Seatbelt use: sometimes Helmet use: Yes Drive intox or ride w/intox rear load truck driver: No Working smoke detector in home: Yes Fire extinguisher in home: Yes Carbon monox detector in home: Yes Firearms in home: No Do you feel safe at home: Yes Do you feel safe in your relationship?: Yes
[2025-03-05] MEDS: Fluorescein STRIPS 100/BOX 1 MG OP (02:16)
[2025-03-05] MEDS: Erythromycin Ophth Oint 3.5 GM TUBE OD (02:17)
[2025-03-05] MEDS: Tetanus & Diphtheria Tox,ADULT 0.5 ML VIAL IM (02:36)
[2025-03-05 03:05] VITALS: BP 124/60; PULSE 77; RESP 16; TEMP 36.9; O2SAT 97
== END 2025-03-05 03:05 | disposition home or self-care (01) ==
PROVIDERS: Emergency Provider Student in an Organized Health Care Education/Training Program; PCP Nurse Practitioner
DX: T15.01XA Foreign body in cornea, right eye, initial encounter (principal); F17.210 Nicotine dependence, cigarettes, uncomplicated; Z23 Encounter for immunization; W44.D0XA Magnetic metal object unspecified, entering into or through a natural orifice, initial encounter; Y93.89 Activity, other specified
CPT/HCPCS: 90471; 90714; 99283

== ENCOUNTER 2025-06-04 07:32 | Emergency (ER) | payer MEDICAID, SELFPAY ==
[2025-06-04] VITALS (10 sets, daily range): BP systolic 110–141; BP diastolic 67–82; PULSE 60–78; RESP 15–21; TEMP 36.5; O2SAT 98–99
--- NOTE | 2025-06-04 07:30 | RT.EKG_ITS ---
APPROVED REPORT Exam: Resting ECG Reason for Exam: SOB Patient Location: E HR:66 bpm ECG Measurements Heart Rate 66 AXIS MI 161 P 25 QRSd 95 QRS 10 QT 366 T 29 QTc 383 Conclusion Sinus rhythm...normal P axis, V-rate 60- 99 ST elev, probable normal early repol pattern...ST elevation, age<55 No Occlusion NE
--- NOTE | 2025-06-04 07:51 | W.ED.GENAD ---
Discharge Plan Disposition Patient Disposition: Home Discharge Details Clinical Impression: Acute right-sided back pain Primary Care Provider: Joan Webster ED Provider: Raulito Moser Home Meds and New Rx's Prescriptions: New lidocaine [Lidoderm] 5 % adhesive patch,medicated 1 patch topical DAILY Qty: 15 0RF Rx Instructions: leave on most painful area for up to 12 hrs Discharge Instructions Instructions: Exercises for Upper Back Pain Additional Instructions: You are seen in the emergency department for your back pain. As we discussed if you develop worsening pain any chest pain that does not stop or any episodes of passing out or blood in your urine please return to the emergency department. Otherwise please follow-up with your primary care provider in the next week. For your pain please take medications as follows: 1. Take acetaminophen (Tylenol), 1,000 mg (two 500 mg tabs) every 6 hours [2. Take ibuprofen (Advil), 400 mg every 6 hours.] Stand Alone Forms: Work Release Discharge Data Discharge Date/Time-TO BE ENTERED AT DEPARTURE: 06/04/25 09:51 HPI General Date/Time Provider Initiated Documentation: 06/04/25 07:51. HPI Narrative: MDM This is a quite well-appearing normothermic and not tachycardic 35-year-old male with right sided back pain reassuring against multiple dangerous pathologies for which patient will receive empiric trial of discharge with expectant outpatient management following analgesia using ketorolac and acetaminophen in addition to diazepam in the event that there is a component of musculoskeletal spasm. Patient has chest pain when coughing and has a nonischemic ECG. Given his lack of persistent chest pain and his lack of risk factors I did not obtain troponins. No pain out proportion to suggest necrotizing soft tissue infection. I considered aortic dissection however in the presence of reproducible right paraspinal pain my suspicion was low for aortic dissection. He has no tenderness in his right lower quadrant so I am not suspicious for appendicitis. Furthermore he has not been vomiting nor had any diarrhea and he reports normal appetite. He has no midline back pain to suggest cauda equina syndrome. Furthermore no loss of bowel or bladder control. No rash to back to suggest zoster. He had no hydronephrosis to suggest ureterallithiasis and no history of nephrolithiasis so I did not feel he required a CT scan. Patient has no right upper quadrant tenderness to suggest acute cholecystitis and [id number] ultrasound is not consistent with acute cholecystitis. He is a smoker but has no pulsatile masses and no abdominal pain so I am not suspicious for ruptured AAA. No loss of bowel or bladder control or saddle anesthesia to suggest cauda equina. No history of malignancy to suggest pathological fracture. No history of IV drug use to suggest increased risk for spinal epidural abscess and no fevers. No recent spinal instrumentation nor anticoagulation to suggest increased risk for spinal epidural hematoma. Narrow complex normal sinus rhythm at a rate of 66. Normal axis. Intervals within normal limits. Mild upsloping ST segment elevations. No ST segment depressions. No acute injury pattern. 9:34 AM Patient felt slightly improved following treatment. We discussed whether or not to obtain additional testing such as basic metabolic panel and troponin testing. We decided that we will defer testing at this point in time. I provided the patient with a work note. We discussed that he should return to the emergency department if you develop persistent chest pain if you develop syncope if you develop any hematuria or if you have any other concerns. He understood his return indications and was discharged with an empiric trial of expectant outpatient management. HPI This is a patient with a history of intermittent lower back pain presenting with acute back pain. The patient reports experiencing a stabbing pain on the right side of his back, midway up, just below the shoulder blades. This pain began suddenly last night while he was smoking a cigarette outside. Upon sitting down indoors, he experienced severe pain in his side and back, making it difficult for him to lie down. He has not taken any medication for the pain. The patient reports no history of kidney stones, blood clots in his legs or lungs, or unusual rashes on his back. His appetite remains good, and he has not experienced diarrhea, hematuria, or dysuria. The pain does not radiate and is not alleviated by any specific action. He reports no unusual activities over the weekend. He is currently employed and requires a doctor's note for work. The patient also reports nausea but has not vomited. He is not experiencing abdominal pain. The patient is at the tail end of a cold and still has a mild cough. He experiences chest pain when he coughs. He also reports shortness of breath since the onset of his back pain. Exam General: Well-appearing in no acute distress speaking in complete sentences. Head: Normocephalic, atraumatic. Eye: Extraocular eye movements intact. No conjunctival injection. No scleral icterus. Ear, nose, mouth, throat: Grossly normal inspection. Normal voice, handling secretions normally. Neck: Trachea midline. Cardiovascular: Well-perfused distal extremities. Regular rate and rhythm Respiratory: Nonlabored respiration. Clear lungs bilaterally. Back: No midline thoracic nor lumbar spinal tenderness. Patient does have right paraspinal muscle tenderness mid scapular line at the mid thoracic level. No rash to back. Gastrointestinal: Nondistended abdomen. Soft. Nontender. No rebound. No guarding. Musculoskeletal: No edema. Moving all 4 extremities spontaneously. Skin: Normal for age and race, grossly normal temperature and turgor. No acute rash. Neurologic: Alert and appropriate, no apparent acute deficits. Related Data Home Medications ?Medication ?Instructions ?Recorded ?Confirmed lidocaine 5 % topical patch 1 patch topical DAILY #15 ea 06/04/25 (Lidoderm) Previous Rx's ?Medication ?Instructions ?Recorded lidocaine 5 % topical patch 1 patch topical DAILY #15 ea 06/04/25 (Lidoderm) Allergies Allergy/AdvReac Type Severity Reaction Status Date / Time No Known Allergies Allergy Verified 06/04/25 07:39 General Stated Complaint: Nk/Back Pain CRISTINA: 3 Course Vital Signs Vital signs: Vital Signs Temperature 36.5 C 06/04/25 07:34 Pulse 78 06/04/25 07:34 Respiratory Rate 18 06/04/25 07:34 Blood Pressure 141/82 H 06/04/25 07:34 Pulse Oximetry 99 06/04/25 07:34 Temperature 36.5 C 06/04/25 07:34 Temperature Source Oral 06/04/25 07:34 Pulse 78 06/04/25 07:34 Respiratory Rate 18 06/04/25 07:34 Blood Pressure 141/82 H 06/04/25 07:34 Blood Pressure Position Sitting 06/04/25 07:34 Pulse Oximetry 99 06/04/25 07:34 Oxygen Delivery Method Room Air 06/04/25 07:34 Oxygen Flow Rate 0 06/04/25 07:34 Pain Level 9 06/04/25 07:44 PFSH All Active Problems (Updated 06/04/25 @ 09:32 by Raulito Moser MD) Acute right-sided back pain (Acute) COVID-19 (Acute) Chronic low back pain (Chronic) Acute tonsillitis (Acute) Mild sleep apnea (Acute ~05/2022) Right knee pain (Acute) Left arm numbness (Acute) Fatigue (Acute) Hand pain (Acute) Bilateral knee pain (Acute) Joint pain (Acute) Constipation (Acute) Routine medical exam (Acute) Back pain (Acute) Eczema (Acute) Encounter to establish care (Acute) Tobacco abuse disorder (Acute) Erectile dysfunction (Acute) Surgical History History of placement of ear tubes Family History Maternal Grandfather Cancer Brain cancer Social History Smoking/Tobacco Use Status: Current every day Tobacco Type: cigarettes Tobacco: How many years used: 18 Second Hand Exposure: Yes (both parents smoked) Smoking risk assessment performed?: Yes Alcohol Intake: never Drug use: Daily Substance use type: marijuana Details: Pt states he smokes daily 06/04/25 Adopted: No Caregiver/Support person: No Foster care: No Household members: spouse, family and children Housing: house Number of Children: 2 number of grandchildren: 0 Communication Needs: None Education Level: high school Do you need help understanding health information?: Rarely current occupation: Unemployed Pets and animals: Yes Pets and animals: cat(s) Sexually active: Yes Do you think of yourself as: straight/heterosexual Current gender identity: male What is your relationship status?: How often do you talk on the phone with friends or family?: three or more times per week How often do you get together with friends or relatives?: once per week Do you belong to any clubs or organized social groups?: no Panel score (0-1 are the most socially isolated patients): 2 What type of physical activity do you participate in: walking Duration: 45-60 minutes/day Frequency: 3-4 times per week Special jayne needs: No Seatbelt use: sometimes Helmet use: Yes Drive intox or ride w/intox city bus driver: No Working smoke detector in home: Yes Fire extinguisher in home: Yes Carbon monox detector in home: Yes Firearms in home: No Do you feel safe at home: Yes Do you feel safe in your relationship?: Yes POCUS Exam (ED) Limited Gallbladder Exam DATE OF EXAM: 06/04/25 TIME OF EXAM: 08:57 PROVIDER THAT PERFORMED THE STUDY: Raulito Moser REASON FOR VISIT: Flank pain VISUALIZED STRUCTURES: Gallbladder and Gallbladder wall PERTINENT FINDINGS/IMPRESSION: No apparent abnormalities; No Cholecystitis, No Cholelithiasis, No Pericholecystic fluid and No thickening of the gallbladder wall INCIDENTAL FINDINGS: No pericholecystic fluid. No sonographic Snow's. No gallbladder wall thickening. No cholelithiasis. Exam complete Limited Retroperitoneal(Renal)Exam DATE OF EXAM: 06/04/25 TIME OF EXAM: 08:57 PROVIDER THAT PERFORMED THE STUDY: Raulito Moser IS THIS A REPEAT EXAM DURING THIS ENCOUNTER: No REASON FOR EXAM: Groin pain/right side VISUALIZED STRUCTURES: Left kidney, Right kidney and Other (Bladder) structures: Gallbladder kidneys bilaterally PERTINENT FINDINGS/IMPRESSION: no hydronephrosis present DIFFERENTIAL DIAGNOSES: No obvious UVJ stone. No hydronephrosis bilaterally Exam complete
--- NOTE | 2025-06-04 08:00 | DI.RAD_ITS ---
Exam(s) XR CHEST 2V PA LATERAL EXAM: XR CHEST 2V PA LATERAL CLINICAL HISTORY: Back pain TECHNIQUE: 2D digital imaging was performed. Two views. COMPARISON: CR LEFT HUMERUS from 11/03/2017 FINDINGS: HEART: Normal size. Aorta: Not dilated. PULMONARY VASCULATURE: Normal. MEDIASTINUM: Unremarkable. LUNGS: Clear. PLEURAL SPACE: No pleural effusion or pneumothorax. BONE:Unremarkable for age. SOFT TISSUES: Unremarkable. IMPRESSION: No acute abnormality. DATA REPOSITORY: RADIATION DOSE DELIVERED:
[2025-06-04] MEDS: diazePAM 5 MG TAB PO (08:22)
[2025-06-04] MEDS: Acetaminophen 500 MG TAB 1000 MG PO (08:22)
[2025-06-04] MEDS: Ketorolac 15 MG/ML VIAL IM (08:22)
[2025-06-04] MEDS: Lidocaine 5% Patch 1 PATCH TP (09:51)
== END 2025-06-04 09:51 | disposition home or self-care (01) ==
PROVIDERS: Emergency Provider Emergency Medicine; PCP Nurse Practitioner
DX: M54.6 Pain in thoracic spine (principal)
CPT/HCPCS: 99283; 99284; 96372; 76705; 76775; 93005; 71046; 93010; J1885